=== PATIENT | male | born 1975 | race African-American/Black ===

== ENCOUNTER 2021-11-17 23:47 | Emergency (ER) | payer MEDICARE, OTHER ==
--- NOTE | 2021-11-18 00:10 | XR ---
EXAMINATION TYPE: XR chest 2V DATE OF EXAM: 11/18/2021 COMPARISON: NONE HISTORY: Short of breath. TECHNIQUE: 2 view FINDINGS: There is some coarse interstitial infiltrate in the mid and lower lung curiel. Heart size i s normal. Mediastinum is normal. There is left axillary pacemaker. There is no pleural effusion. IMPRESSION: There is some patchy interstitial pneumonia.
[2021-11-18] MEDS: IBUPROFEN 600 MG TAB PO STA (00:23)
[2021-11-18] MEDS: ACETAMINOPHEN TAB 325 MG TAB PO STA (00:23)
--- NOTE | 2021-11-18 01:13 | ED ---
Fever HPI - General Chief Complaint: Fever Stated Complaint: Body Aches, Loss of apetite Time Seen by Provider: 11/17/21 23:54 Source: patient, RN notes reviewed Mode of arrival: ambulatory - History of Present Illness Initial Comments: Patient is a 46-year-old male that presents to the emergency department complaining of body aches fatigue and fever. He denied taking Tylenol Motrin or to arrival. Patient notes he hasn't been tested for Covid in several months. Patient was otherwise well-appearing in no apparent distress. She denied chest pain shortness of breath headache nausea vomiting diarrhea constipation fatigue chills. - Related Data Previous Rx's Medication Instructions Recorded predniSONE 50 mg PO DAILY #5 tab 11/18/21 Allergies Allergy/AdvReac Type Severity Reaction Status Date / Time No Known Allergies Allergy Verified 11/17/21 23:54 Review of Systems ROS Statement: Those systems with pertinent positive or pertinent negative responses have been documented in the HPI. ROS Other: All systems not noted in ROS Statement are negative. Past Medical History Additional Past Medical History / Comment(s): pacemaker, born with heart problems History of Any Multi-Drug Resistant Organisms: None Reported Additional Past Surgical History / Comment(s): cardiac Past Psychological History: No Psychological Hx Reported Smoking Status: Never smoker Past Alcohol Use History: None Reported Past Drug Use History: None Reported General Exam General appearance: alert, in no apparent distress Head exam: Present: atraumatic, normocephalic, normal inspection Eye exam: Present: normal appearance, PERRL, EOMI. Absent: scleral icterus, conjunctival injection, periorbital swelling ENT exam: Present: normal exam, mucous membranes moist Neck exam: Present: normal inspection. Absent: tenderness, meningismus, lymphadenopathy Respiratory exam: Present: normal lung sounds bilaterally. Absent: respiratory distress, wheezes, rales, rhonchi, stridor Cardiovascular Exam: Present: regular rate, normal rhythm, normal heart sounds. Absent: systolic murmur, diastolic murmur, rubs, gallop, clicks GI/Abdominal exam: Present: soft, normal bowel sounds. Absent: distended, tenderness, guarding, rebound, rigid Extremities exam: Present: normal inspection, full ROM, normal capillary refill. Absent: tenderness, pedal edema, joint swelling, calf tenderness Neurological exam: Present: alert, oriented X3 Psychiatric exam: Present: normal affect, normal mood Skin exam: Present: warm, dry, intact, normal color. Absent: rash Course Vital Signs 11/17/21 23:50 Temperature 103.1 F H Pulse Rate 107 H Respiratory 18 Rate Blood Pressure 110/73 O2 Sat by Pulse 94 L Oximetry Medical Decision Making - Medical Decision Making 46-year-old male complaining of fever and bodyaches. Covid test, influenza test, chest x-ray ordered. Covid test positive. Chest x-ray bilateral patchy infiltrates. Patient will be given 10 mg of Decadron. 600 of Motrin and 650 of Tylenol was ordered for fever. - Lab Data Lab Results 11/18/21 Range/Units 00:25 Coronavirus (PCR) Detected A (Not Detectd) - Radiology Data Radiology results: report reviewed, image reviewed Chest x-ray: There is some patchy interstitial pneumonia. Disposition Clinical Impression: Pneumonia due to COVID-19 virus Disposition: HOME SELF-CARE Condition: Stable Instructions (If sedation given, give patient instructions): Fever in Adults (ED) Additional Instructions: Please return to the Emergency Department if symptoms worsen or any other concerns. Follow-up with primary care in 1-2 days. Take Tylenol Motrin alternating every 3 hours as needed for fever aches and pains. Is patient prescribed a controlled substance at d/c from ED?: No Referrals: None,Stated [Primary Care Provider] - 1-2 days Time of Disposition: 01:13
[2021-11-18] MEDS: DEXAMETHASONE SOD PHOSPHATE 10 MG/ML 1 ML VIAL IM STA (01:37)
[2021-11-18 01:40] VITALS: BP 116/75; PULSE 101; RESP 19; TEMP 99.2
== END 2021-11-18 01:43 | disposition home or self-care (01) ==
LOC: EC 23:47
DX: U07.1 COVID-19 (principal); J12.82 Pneumonia due to coronavirus disease 2019
CPT/HCPCS: 87502; 87635; 71046; 99283; 96372; J1100

== ENCOUNTER 2021-11-19 08:37 | Inpatient (IN) | payer MEDICARE, OTHER ==
[2021-11-19] MEDS ORDERED: IBUPROFEN IV 800 MG in SODIUM CHLORIDE 0.9% 250 ML IV ONE (08:54)
[2021-11-19] MEDS ORDERED: ONDANSETRON 4 MG/2 ML VIAL IVP STA (08:54)
[2021-11-19] MEDS ORDERED: SODIUM CHLORIDE 0.9% 1,000 ML IV ONE ×2 (08:54→11:18)
[2021-11-19] MEDS ORDERED: ACETAMINOPHEN TAB 500 MG TAB PO STA (08:54)
--- NOTE | 2021-11-19 09:10 | ED ---
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 Patient is reporting it elevated temperature, body aches, weakness, nausea, cough. States it hurts when he takes a deep breath. Patient denies taking any medication for his symptoms. States he was given prescriptions but he hasn't been able to get them filled due to pharmacy being closed. He was not vaccinated for COVID-19. Patient denies any recent rash, fever, chills, cough, shortness of breath, chest pain, abdominal pain, nausea, vomiting, diarrhea, constipation, back pain, numbness, tingling, dizziness, weakness, hematuria, dysuria, urinary urgency, urinary frequency, headache, visual changes, or any other complaints. - Related Data Previous Rx's Medication Instructions Recorded predniSONE 50 mg PO DAILY #5 tab 11/18/21 guaiFENesin-DM 600/30MG [Mucinex 2 each PO Q12HR PRN #20 tab 11/19/21 Dm] Allergies Allergy/AdvReac Type Severity Reaction Status Date / Time No Known Allergies Allergy Verified 11/19/21 08:43 Review of Systems ROS Statement: Those systems with pertinent positive or pertinent negative responses have been documented in the HPI. ROS Other: All systems not noted in ROS Statement are negative. Past Medical History Additional Past Medical History / Comment(s): pacemaker, born with heart problems History of Any Multi-Drug Resistant Organisms: None Reported Additional Past Surgical History / Comment(s): cardiac Past Psychological History: No Psychological Hx Reported Smoking Status: Never smoker Past Alcohol Use History: None Reported Past Drug Use History: None Reported General Exam Limitations: no limitations General appearance: alert, in no apparent distress, other (This is a well developed, well nourished adult male. ) Eye exam: Present: normal appearance, PERRL, EOMI. Absent: scleral icterus, conjunctival injection, periorbital swelling ENT exam: Present: normal exam, normal oropharynx, mucous membranes moist Respiratory exam: Present: normal lung sounds bilaterally. Absent: respiratory distress, wheezes, rales, rhonchi, stridor Cardiovascular Exam: Present: normal rhythm, tachycardia, normal heart sounds. Absent: systolic murmur, diastolic murmur, rubs, gallop, clicks GI/Abdominal exam: Present: soft, normal bowel sounds. Absent: distended, tenderness, guarding, rebound, rigid Neurological exam: Present: alert, oriented X3, CN II-XII intact Psychiatric exam: Present: normal affect, normal mood Skin exam: Present: warm, dry, intact, normal color. Absent: rash Course Vital Signs 11/19/21 11/19/21 11/19/21 08:39 11:15 11:19 Temperature 103.2 F H 99.7 F H Pulse Rate 109 H 89 Respiratory 18 16 Rate Blood Pressure 92/56 74/48 O2 Sat by Pulse 94 L 92 L Oximetry 11/19/21 11/19/21 11/19/21 11:47 12:29 12:34 Temperature Pulse Rate 73 73 81 Respiratory 18 17 20 Rate Blood Pressure 84/51 81/47 91/54 O2 Sat by Pulse 94 L 95 93 L Oximetry 11/19/21 11/19/21 13:01 13:57 Temperature Pulse Rate 66 81 Respiratory 18 18 Rate Blood Pressure 84/62 89/65 O2 Sat by Pulse 96 95 Oximetry - Reevaluation(s) Reevaluation #1: 11/19/21 11:25 Discharge vital signs revealed decreased blood pressure, blood pressure is 70 systolic. Additional 1 L of normal saline was ordered. Added labs and EKG. EKG Findings - EKG Comments: EKG Findings:: EKG obtained at 1145 shows normal sinus rhythm with a ventricular rate of 74, NE interval 154, QRS duration 106, QT 382, QTc 424. No evidence of ST elevation or depression. Medical Decision Making - Medical Decision Making 46-year-old male patient presenting for evaluation of worsening symptoms after being diagnosed with COVID-19 yesterday. Physical examination reveals clear equal lung sounds. Abdomen soft and nontender. He did have decreased oxygen saturation. Temperature is elevated to 103F. He was given IV fluids and medication for symptoms. He did meet criteria to receive monoclonal antibody infusion, he tolerated this well. Upon reevaluation is resting comfortable states he does feel better. His blood pressures are low ranging from 70s-80s systolic. He reports feeling tired, no other symptoms. Discussed case with Dr. Brunson, she recommends CTA of the chest. He'll be admitted to the hospital for further evaluation and monitoring. He verbalizes understanding and agrees with this plan. My attending is Dr. Mata. - Lab Data Result diagrams: 11/19/21 11:37 11/19/21 11:37 Lab Results 11/19/21 11/19/21 11/19/21 Range/Units 11:37 11:37 11:37 WBC 6.8 (3.8-10.6) k/uL RBC 3.66 L (4.30-5.90) m/uL Hgb 12.4 L (13.0-17.5) gm/dL Hct 36.3 L (39.0-53.0) % MCV 99.0 (80.0-100.0) fL MCH 33.8 (25.0-35.0) pg MCHC 34.1 (31.0-37.0) g/dL RDW 12.0 (11.5-15.5) % Plt Count 140 L (150-450) k/uL MPV 9.6 Neutrophils % 83 % Lymphocytes % 10 % Monocytes % 5 % Eosinophils % 1 % Basophils % 0 % Neutrophils # 5.7 (1.3-7.7) k/uL Lymphocytes # 0.7 L (1.0-4.8) k/uL Monocytes # 0.4 (0-1.0) k/uL Eosinophils # 0.0 (0-0.7) k/uL Basophils # 0.0 (0-0.2) k/uL Sodium 131 L (137-145) mmol/L Potassium 4.3 (3.5-5.1) mmol/L Chloride 101 (98-107) mmol/L Carbon Dioxide 22 (22-30) mmol/L Anion Gap 8 mmol/L BUN 28 H (9-20) mg/dL Creatinine 1.47 H (0.66-1.25) mg/dL Est GFR (CKD-EPI)AfAm 65 (>60 ml/min/1.73 sqM) Est GFR (CKD-EPI)NonAf 56 (>60 ml/min/1.73 sqM) Glucose 142 H (74-99) mg/dL Plasma Lactic Acid Salvador 0.9 (0.7-2.0) mmol/L Calcium 7.5 L (8.4-10.2) mg/dL Total Bilirubin 0.7 (0.2-1.3) mg/dL AST 32 (17-59) U/L ALT 18 (4-49) U/L Alkaline Phosphatase 34 L (38-126) U/L Troponin I (0.000-0.034) ng/mL NT-Pro-B Natriuret Pep pg/mL Total Protein 6.5 (6.3-8.2) g/dL Albumin 3.0 L (3.5-5.0) g/dL 11/19/21 11/19/21 Range/Units 11:37 11:37 WBC (3.8-10.6) k/uL RBC (4.30-5.90) m/uL Hgb (13.0-17.5) gm/dL Hct (39.0-53.0) % MCV (80.0-100.0) fL MCH (25.0-35.0) pg MCHC (31.0-37.0) g/dL RDW (11.5-15.5) % Plt Count (150-450) k/uL MPV Neutrophils % % Lymphocytes % % Monocytes % % Eosinophils % % Basophils % % Neutrophils # (1.3-7.7) k/uL Lymphocytes # (1.0-4.8) k/uL Monocytes # (0-1.0) k/uL Eosinophils # (0-0.7) k/uL Basophils # (0-0.2) k/uL Sodium (137-145) mmol/L Potassium (3.5-5.1) mmol/L Chloride (98-107) mmol/L Carbon Dioxide (22-30) mmol/L Anion Gap mmol/L BUN (9-20) mg/dL Creatinine (0.66-1.25) mg/dL Est GFR (CKD-EPI)AfAm (>60 ml/min/1.73 sqM) Est GFR (CKD-EPI)NonAf (>60 ml/min/1.73 sqM) Glucose (74-99) mg/dL Plasma Lactic Acid Salvador (0.7-2.0) mmol/L Calcium (8.4-10.2) mg/dL Total Bilirubin (0.2-1.3) mg/dL AST (17-59) U/L ALT (4-49) U/L Alkaline Phosphatase (38-126) U/L Troponin I <0.012 (0.000-0.034) ng/mL NT-Pro-B Natriuret Pep 47 pg/mL Total Protein (6.3-8.2) g/dL Albumin (3.5-5.0) g/dL - Radiology Data Radiology results: report reviewed, image reviewed Two-view x-ray of the chest is obtained. Report was reviewed in its entirety. Impression by Dr. Beckman shows patchy bibasilar opacities with mild interstitial bilateral prominence suggestive of multifocal infection. Disposition Clinical Impression: COVID-19, Hypotension Disposition: ADMITTED IP TO THIS [facility] Condition: Serious Decision to Admit Reason: Admit from EC Decision Date: 11/19/21 Decision Time: 14:25
[2021-11-19] MEDS ORDERED: SODIUM CHLORIDE 0.9% 50 ML IVPB ONE (09:30)
[2021-11-19] MEDS ORDERED: BAMLANIVIMAB (EUA) 700 MG, ETESEVIMAB (EUA) 1,400 MG in SODIUM CHLORIDE 0.9% 100 ML IVPB ONE (09:30)
--- NOTE | 2021-11-19 10:34 | XR ---
EXAMINATION TYPE: XR chest 2V DATE OF EXAM: 11/19/2021 COMPARISON: NONE HISTORY: Cough and chest pain covid positive TECHNIQUE: Frontal and lateral views of the chest are obtained. IMPRESSION: Patchy bibasilar right greater than left opacities with mild interstitial bilateral promi nence suggestive of multifocal infection and/or subsegmental atelectasis with associated mild pulmon monica edema. No pneumothorax or large effusion. Normal cardiomediastinal silhouette with dual-lead cardiac pacemaker. No acute osseous abnormalities seen.
[2021-11-19 12:03] LABS: Calcium 7.5 mg/dL (8.4-10.2); Potassium 4.3 mmol/L (3.5-5.1); Total Bilirubin 0.7 mg/dL (0.2-1.3); Total Protein 6.5 g/dL (6.3-8.2)
[2021-11-19 12:10] LABS: Basophils % (A) 0 %; Eosinophils % (A) 1 %; HCT 36.3 % (39.0-53.0); HGB 12.4 gm/dL (13.0-17.5); Lymphocytes # (A) 0.7 k/uL (1.0-4.8); Lymphocytes % (A) 10 %; MCH 33.8 pg (25.0-35.0); MCHC 34.1 g/dL (31.0-37.0); Mean Platelet Volume 9.6; Monocytes # (A) 0.4 k/uL (0-1.0); Monocytes % (A) 5 %; Neutrophils # (A) 5.7 k/uL (1.3-7.7); Neutrophils % (A) 83 %; Platelet Count 140 k/uL (150-450); RBC 3.66 m/uL (4.30-5.90); WBC 6.8 k/uL (3.8-10.6)
[2021-11-19] MEDS ORDERED: ONDANSETRON 4 MG/2 ML VIAL IVP PRN (14:23)
[2021-11-19] MEDS ORDERED: NALOXONE 0.4 MG/ML 1 ML VIAL IV PRN ×2 (14:23→14:47)
--- NOTE | 2021-11-19 15:00 | P.HPIM ---
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 Patient is reporting it elevated temperature, body aches, weakness, nausea, vomiting and diarrhea. Also has shortness of breath and pleuritic chest pain. No cough. He was not vaccinated for COVID-19. He is feeling generally weak. He has not eaten in 6 days because nothing stays down. Patient states that he is supposed to be on some heart medications but he has not been taking them lately. Last time he saw a diamond grinder was a year ago. He states that he is status post a pacemaker and defibrillator. Examination in the emergency department showed no hypoxia. He did have a fever of 103.2 and blood pressure was borderline in the 90s systolic. Laboratory evaluation shows lymphopenia, sodium 131, BUN 28, creatinine 1.4, calcium 7.5, albumin 3. Chest x-ray showed bilateral infiltrates consistent with pneumonia. Review of Systems Complete review of system performed, pertinent positives per HPI, otherwise negative Past Medical History Additional Past Medical History / Comment(s): pacemaker, born with heart problems History of Any Multi-Drug Resistant Organisms: None Reported Additional Past Surgical History / Comment(s): cardiac Past Psychological History: No Psychological Hx Reported Smoking Status: Never smoker Past Alcohol Use History: None Reported Past Drug Use History: None Reported Medications and Allergies Home Medications Medication Instructions Recorded Confirmed Type predniSONE 50 mg PO DAILY #5 tab 11/18/21 Rx guaiFENesin-DM 600/30MG [Mucinex 2 each PO Q12HR PRN #20 tab 11/19/21 Rx Dm] Allergies Allergy/AdvReac Type Severity Reaction Status Date / Time No Known Allergies Allergy Verified 11/19/21 08:43 Physical Exam Vitals: Vital Signs Temp Pulse Resp BP Pulse Ox 11/19/21 13:57 81 18 89/65 95 11/19/21 13:01 66 18 84/62 96 11/19/21 12:34 81 20 91/54 93 L 11/19/21 12:29 73 17 81/47 95 11/19/21 11:47 73 18 84/51 94 L 11/19/21 11:19 74/48 12/26/21 11:15 99.7 F H 89 16 92 L 11/19/21 08:39 103.2 F H 109 H 18 92/56 94 L Intake and Output 11/18/21 11/19/21 11/19/21 22:59 06:59 14:59 Other: Weight 90.718 kg Constitutional: No acute distress, conversant, pleasant Eyes:Anicteric sclerae, moist conjunctiva, no lid-lag, PERRLA, ENMT: Oropharynx clear, no erythema, exudates Neck: Supple, FROM, no masses, or JVD, No carotid bruits, No thyromegaly Lungs: Clear to auscultation, Clear to percussion, Normal respiratory effort, no accessory muscle use Cardiovascular: Heart regular in rate and rhythm, No murmurs, gallops, or rubs, No peripheral edema Abdominal: Soft, Nontender, no guarding, rebound or rigidity, Normoactive bowel sounds, No hepatomegaly, No splenomegaly, No palpable mass Skin: Normal temperature, tone, texture, turgor, no induration, No subcutaneous nodules, No rash, lesions, No ulcers Extremities: No digital cyanosis, No clubbing, Pedal pulses intact and symmetrical, Radial pulses intact and symmetrical, No calf tenderness Psychiatric: Alert and oriented to person, place and time, appropriate affect, intact judgement Neuro: Muscles Strength 5/5 in all 4 extremities, Sensation to light touch grossly present throughout, Cranial nerves II-XII grossly intact, no focal sensory deficits Results CBC & Chem 7: 11/19/21 11:37 11/19/21 11:37 Labs: Abnormal Lab Results - Last 24 Hours (Table) 11/19/21 11/19/21 Range/Units 11:37 11:37 RBC 3.66 L (4.30-5.90) m/uL Hgb 12.4 L (13.0-17.5) gm/dL Hct 36.3 L (39.0-53.0) % Plt Count 140 L (150-450) k/uL Lymphocytes # 0.7 L (1.0-4.8) k/uL Sodium 131 L (137-145) mmol/L BUN 28 H (9-20) mg/dL Creatinine 1.47 H (0.66-1.25) mg/dL Glucose 142 H (74-99) mg/dL Calcium 7.5 L (8.4-10.2) mg/dL Alkaline Phosphatase 34 L (38-126) U/L Albumin 3.0 L (3.5-5.0) g/dL Assessment and Plan Plan: COVID-19 pneumonia Received bamlanivimab in the ER He is not hypoxic, will not treat with steroids for now Check procalcitonin to decide if he might benefit from anbx. Monitor O2 sats CT angio ordered in the ER will follow. [place] Likely sec to severe dehydration IV fluids Will recheck renal fx in am Hyponatremia Likely from dehydration as above Will follow in am Congenital heart disease Will get echo, unclear what type per the patient's description DVT prophylaxis Lovenox Admit to inpatient expected length of stay more than 2 midnights.
[2021-11-19] MEDS: IBUPROFEN 400 MG TAB PO PRN (15:20)
--- NOTE | 2021-11-19 15:33 | CT ---
EXAMINATION TYPE: CT chest angio for PE DATE OF EXAM: 11/19/2021 COMPARISON: Chest radiograph same day HISTORY: covid, sob CT DLP: 387.6 mGycm Automated exposure control for dose reduction was used. CONTRAST: CT Chest for pulmonary embolism performed with with IV Contrast, patient injected with 80 mL of Isovu e 370. FINDINGS: LUNGS: Central airways are normal course and caliber. Diffuse patchy peripherally distributed multifo guillermo areas of groundglass opacity. No pleural effusion or pneumothorax. MEDIASTINUM: Cardiac size appears borderline enlarged. Dual-lead pacemaker is present. Thoracic aorta is of normal caliber. Suboptimal opacification of the pulmonary arteries; however, there are no cent ral filling defects to suggest pulmonary embolism. A few mildly prominent mediastinal and hilar lymph nodes which are likely reactive. No axillary lymph adenopathy. OTHER: No additional significant abnormality is seen. IMPRESSION: 1. Scattered multifocal areas of groundglass opacity with a peripheral distribution within the bilate ral lungs. Findings are nonspecific but can see with atypical pneumonitis from COVID. 2. Suboptimal opacification of the pulmonary arteries; however, there is no evidence of pulmonary emb olism.
[2021-11-19] MEDS: SODIUM CHLORIDE 0.9% 1,000 ML IV SCH (16:36)
[2021-11-19] MEDS: ENOXAPARIN 40 MG/0.4 ML SYRINGE SQ SCH (17:15)
[2021-11-20] MEDS: ACETAMINOPHEN TAB 325 MG TAB PO PRN ×4 (00:32→17:51)
[2021-11-20] MEDS: SODIUM CHLORIDE 0.9% 1,000 ML IV SCH ×2 (06:26→17:56)
[2021-11-20] MEDS: IBUPROFEN 400 MG TAB PO PRN ×2 (09:47→19:55)
[2021-11-20] MEDS: ENOXAPARIN 40 MG/0.4 ML SYRINGE SQ SCH (09:48)
--- NOTE | 2021-11-20 11:00 | ECHOF ---
Referral Reason:''hole in the aorta'' MEASUREMENTS -------- HEIGHT: 175.3 cm WEIGHT: 90.7 kg BP: RVIDd: 3.1 cm (< 3.3) IVSd: 1.4 cm (0.6 - 1.1) LVIDd: 5.5 cm (3.9 - 5.3) LVPWd: 1.3 cm (0.6 - 1.1) IVSs: 1.6 cm LVIDs: 2.9 cm LVPWs: 1.5 cm LA Diam: 4.0 cm (2.7 - 3.8) FINDINGS -------- Sinus rhythm. Limited study due to Covid 19 exposure. This was a technically adequate study. There is moderate concentric left ventricular hypertrophy. Overall left ventricular systolic functi on is low-normal with, an EF between 50 - 55 %. CONCLUSIONS -------- 1. Limited study due to Covid 19 exposure. 2. There is moderate concentric left ventricular hypertrophy. 3. Overall left ventricular systolic function is low-normal with, an EF between 50 - 55 %. [employer] SALES: Mckayla Patel RDCS
--- NOTE | 2021-11-20 13:29 | PN ---
PROGRESS NOTE BRIEF NOTE: I did not examine this patient. He has been admitted with what seems to be a COVID infection. He had a CT angiogram performed because of an abnormal D-dimer, and there is no evidence of any pulmonary embolism, but there are multiple areas of ground-glass appearance noted. He has what seems to be a COVID pneumonitis. He carries a history of some congenital heart disease, details unavailable. Patient does not communicate very well. I spoke to him, but I did not examine him. On questioning, he says his cardiac care was at [facility] and [facility]. He has no active problems. He has no chest pain, shortness of breath or palpitations. He is resting comfortably. I did not do a detailed exam, but I reviewed the echo which revealed preserved systolic function. The aortic valve that was seen appears to be trileaflet. This was a limited study in view of active COVID infection. I would recommend that patient follow up with his distribution clerk after discharge at [facility]. No further intervention is necessary here. If his blood pressure is somewhat on the lower side, he can be safely hydrated. LV systolic function is well preserved. I discussed my thoughts in detail with Dr. Brunson. His BNP is normal and his troponin is unremarkable. His procalcitonin is elevated. He does have COVID pneumonia. We are probably dealing with some dehydration, so careful hydration is advised. I will see him as needed. GILBERTO / LYNETTE: [id number] /
--- NOTE | 2021-11-20 13:58 | P.PN ---
Subjective Progress Note Date: 11/20/21 (delayed charting seen at 1030) Principal diagnosis: shortness of breath Patient is a 46-year-old -[place] male for history of congenital heart condition, pacemaker, who presented to the hospital with complaints of worsening body aches, weakness, nausea, vomiting, and diarrhea. He had tested positive for cocaine on 11/18. In the ER he underwent an extensive evaluation. He did have a fever of 103.2. He had borderline blood pressures in the 70s to 90s desp ite fluid resuscitation. He was found have a BUN of 28, creatinine 1.5, and sodium of 131. He was admitted and started on IV fluids. He underwent an echocardiogram 50-55%, CT of the chest was without pulmonary embolism. He was evaluated by cardiology who felt he could receive adequate fluid resuscitation and follow up outpatient with his primary journeyman press operator of [facility]. Patient seen and examined at bedside. He reports he still feels awful". He denies any chest discomfort but states he is feeling short of breath, tired, fatigued and still feels nauseated. He does feel slightly better than yesterday. Per nursing he refused his labs today. General: ill appearing, no distress, appears at stated age Derm: warm, dry Head: atraumatic, normocephalic, symmetric Eyes: EOMI, no lid lag, anicteric sclera Mouth: no lip lesion, mucus membranes dry Cardiovascular: S1S2 reg, no murmur, positive posterior tibial pulse bilateral, Lungs: Course bs bilateral, no rhonchi, no rales , no accessory muscle use Abdominal: soft, nontender to palpation, no guarding, no appreciable organomegaly Ext: no gross muscle atrophy, no edema, no contractures Neuro: CN II-XI grossly intact, no focal neuro deficits Psych: Alert, oriented, appropriate affect COVID-19 pneumonitis Dehydration [place] Hyponatremia - IV fluids - zinc, vit C, Vit D - pulm hygiene - prn borncho dilators Anemia Thromboctyopenia - ideally CBC if patient will consent Congential heart defect - interrogate PPM if able - Echo with preserved EF - Follow-up with outpatient primary journeyman press operator. Objective - Vital Signs Vital signs: Vital Signs Temp 102.9 F H 11/20/21 10:03 Pulse 96 11/20/21 10:03 Resp 17 11/20/21 10:03 BP 89/57 11/20/21 10:03 Pulse Ox 90 L 11/20/21 10:03 Intake & Output 11/19/21 11/20/21 11/20/21 18:59 06:59 18:59 Intake Total 0 900 Balance 0 900 Weight 90.718 kg Intake: Intake, IV Titration 900 Amount Sodium Chloride 0.9% 1, 900 000 ml @ 75 mls/hr IV . [id number] [facility] Rx#:[id number] Oral 0 Other: # Voids 0 - Labs CBC & Chem 7: 11/19/21 11:37 11/19/21 11:37 Labs: Abnormal Lab Results - Last 24 Hours (Table) 11/19/21 Range/Units 11:37 Procalcitonin 0.40 H (0.02-0.09) ng/mL
[2021-11-20] MEDS: CHOLECALCIFEROL 25 MCG (1000 IU) TABLET PO SCH (14:26)
[2021-11-20] MEDS: ASCORBIC ACID 500 MG TAB PO SCH (14:26)
[2021-11-20 15:01] LABS: HCT 39.6 % (39.0-53.0); HGB 12.9 gm/dL (13.0-17.5); MCH 33.7 pg (25.0-35.0); MCHC 32.5 g/dL (31.0-37.0); MCV 103.4 fL (80.0-100.0); Macrocytosis Slight; Mean Platelet Volume 8.9; Platelet Count 151 k/uL (150-450); RBC 3.82 m/uL (4.30-5.90); RDW 12.4 % (11.5-15.5); WBC 7.3 k/uL (3.8-10.6)
[2021-11-20 15:17] LABS: African American GFR (CKD) >90 (>60 ml/min/1.73 sqM); Anion Gap 7 mmol/L; Blood Urea Nitrogen 14 mg/dL (9-20); Calcium 7.7 mg/dL (8.4-10.2); Carbon Dioxide 22 mmol/L (22-30); Chloride 108 mmol/L (98-107); Glucose 116 mg/dL (74-99); Non-African American GFR(CKD) >90 (>60 ml/min/1.73 sqM); Potassium 4.7 mmol/L (3.5-5.1); Sodium 137 mmol/L (137-145)
[2021-11-21] MEDS: SODIUM CHLORIDE 0.9% 1,000 ML IV SCH (05:38)
[2021-11-21] MEDS: ACETAMINOPHEN TAB 325 MG TAB PO PRN ×2 (06:01→19:13)
[2021-11-21] MEDS: ZINC SULFATE 220 MG CAP PO SCH (08:28)
[2021-11-21] MEDS: ENOXAPARIN 40 MG/0.4 ML SYRINGE SQ SCH (08:28)
[2021-11-21] MEDS: ASCORBIC ACID 500 MG TAB PO SCH (08:28)
[2021-11-21] MEDS: CHOLECALCIFEROL 25 MCG (1000 IU) TABLET PO SCH (08:28)
[2021-11-21 10:44] LABS: HCT 36.4 % (39.6-50.0); HGB 11.7 g/dL (13.0-17.0); MCH 31.9 pg (27.0-32.0); MCHC 32.1 g/dL (32.0-37.0); MCV 99.2 fL (80.0-97.0); Mean Platelet Volume 11.4 fL (9.5-12.2); Platelet Count 170 X 10*3/uL (140-440); RBC 3.67 X 10*6/uL (4.40-5.60); RDW 12.8 % (11.5-14.5); WBC 7.77 X 10*3/uL (4.50-10.00)
[2021-11-21] MEDS: DEXAMETHASONE SOD PHOSPHATE 10 MG/ML 1 ML VIAL IVP SCH (11:21)
[2021-11-21] MEDS: ALBUTEROL HFA INHALER INHALATION SCH ×3 (11:37→20:14)
[2021-11-21 12:00] LABS: Basophils # (A) 0.02 X 10*3/uL (0.00-0.10); Basophils % (A) 0.3 %; Eosinophils # (A) 0.02 X 10*3/uL (0.04-0.35); Eosinophils % (A) 0.3 %; Lymphocytes # (A) 0.61 X 10*3/uL (0.90-5.00); Lymphocytes % (A) 7.9 %; Monocytes # (A) 0.22 X 10*3/uL (0.20-1.00); Monocytes % (A) 2.8 %; Neutrophils # (A) 6.84 X 10*3/uL (1.80-7.70); Neutrophils % (A) 87.9 %
[2021-11-21 12:01] LABS: Toxic Vacuolation 2+
[2021-11-21 13:03] LABS: African American GFR (CKD) 117.5 (60.0-200.0); Anion Gap 14.3 mmol/L (10.00-18.00); BUN/Creat Ratio 13.22 Ratio (12.00-20.00); Blood Urea Nitrogen 11.9 mg/dL (9.0-27.0); Calcium 7.7 mg/dL (8.7-10.3); Carbon Dioxide 16.7 mmol/L (20.0-27.5); Non-African American GFR(CKD) 101.4 (60.0-200.0); Phosphorus 1.3 mg/dL (2.4-5.1); Potassium 4.3 mmol/L (3.5-5.5); Total Bilirubin 0.8 mg/dL (0.30-1.20)
--- NOTE | 2021-11-21 13:46 | P.PN ---
Subjective Progress Note Date: 11/21/21 (delayed charting seen at 1030) Principal diagnosis: shortness of breath Patient is a 46-year-old -[place] male for history of congenital heart condition, pacemaker, who presented to the hospital with complaints of worsening body aches, weakness, nausea, vomiting, and diarrhea. He had tested positive for cocaine on 11/18. In the ER he underwent an extensive evaluation. He did have a fever of 103.2. He had borderline blood pressures in the 70s to 90s desp ite fluid resuscitation. He was found have a BUN of 28, creatinine 1.5, and sodium of 131. He was admitted and started on IV fluids. He underwent an echocardiogram 50-55%, CT of the chest was without pulmonary embolism. He was evaluated by cardiology who felt he could receive adequate fluid resuscitation and follow up outpatient with his primary physical therapy professor of [facility]. Patient seen and examined at bedside. He reports that he is feeling slightly more short of breath today. His appetite is better but he is still just wanting fluids and not liquids. He denies any nausea but overall feels better and was able to take a shower today. General: ill appearing, no distress, appears at stated age Derm: warm, dry Head: atraumatic, normocephalic, symmetric Eyes: EOMI, no lid lag, anicteric sclera Mouth: no lip lesion, mucus membranes dry Cardiovascular: S1S2 reg, no murmur, positive posterior tibial pulse bilateral, Lungs: Course bs bilateral, no rhonchi, no rales , no accessory muscle use Abdominal: soft, nontender to palpation, no guarding, no appreciable organom egaly Ext: no gross muscle atrophy, no edema, no contractures Neuro: CN II-XI grossly intact, no focal neuro deficits Psych: Alert, oriented, appropriate affect COVID-19 pneumonitis in an unvaccinated individual Acute hypoxic respiratory failure -Start dexamethasone -Albuterol - IV fluids completed - zinc, vit C, Vit D - pulm hygiene - prn borncho dilators Anemia - ideally CBC if patient will consent Congential heart defect - interrogate PPM if able - Echo with preserved EF - Follow-up with outpatient primary physical therapy professor. Dehydration, resolved [place], resolved Hyponatremia , Thromboctyopenia, resolved Objective - Vital Signs Vital signs: Vital Signs Temp 98.9 F 11/21/21 10:39 Pulse 95 11/21/21 10:39 Resp 18 11/21/21 10:39 BP 103/65 11/21/21 10:39 Pulse Ox 87 L 11/21/21 10:39 Intake & Output 11/20/21 11/21/21 11/21/21 18:59 06:59 18:59 Output Total 300 700 Balance -300 -700 Output: Urine 300 700 Other: Voiding Method Urinal # Voids 3 # Bowel Movements 0 - Labs CBC & Chem 7: 11/21/21 08:07 11/21/21 08:07 Labs: Abnormal Lab Results - Last 24 Hours (Table) 11/20/21 11/20/21 11/21/21 Range/Units 14:53 14:53 08:07 RBC 3.82 L 3.67 L (4.30-5.90) m/uL Hgb 12.9 L 11.7 L (13.0-17.5) gm/dL Hct 36.4 L (39.6-50.0) % MCV 103.4 H 99.2 H (80.0-100.0) fL Immature Gran # 0.06 H (0.00-0.04) X 10*3/uL Lymphocytes # 0.61 L (0.90-5.00) X 10*3/uL Eosinophils # 0.02 L (0.04-0.35) X 10*3/uL Chloride 108 H (98-107) mmol/L Carbon Dioxide (20.0-27.5) mmol/L Glucose 116 H (74-99) mg/dL Calcium 7.7 L (8.4-10.2) mg/dL Phosphorus (2.4-5.1) mg/dL Alkaline Phosphatase (41-126) U/L Total Protein (6.2-8.2) g/dL Albumin (3.8-4.9) g/dL Albumin/Globulin Ratio (1.60-3.17) g/dL 11/21/21 Range/Units 08:07 RBC (4.30-5.90) m/uL Hgb (13.0-17.5) gm/dL Hct (39.6-50.0) % MCV (80.0-100.0) fL Immature Gran # (0.00-0.04) X 10*3/uL Lymphocytes # (0.90-5.00) X 10*3/uL Eosinophils # (0.04-0.35) X 10*3/uL Chloride (98-107) mmol/L Carbon Dioxide 16.7 L (20.0-27.5) mmol/L Glucose 143 H (74-99) mg/dL Calcium 7.7 L (8.4-10.2) mg/dL Phosphorus 1.3 L (2.4-5.1) mg/dL Alkaline Phosphatase 40 L (41-126) U/L Total Protein 6.0 L (6.2-8.2) g/dL Albumin 3.0 L (3.8-4.9) g/dL Albumin/Globulin Ratio 1.00 L (1.60-3.17) g/dL Microbiology - Last 24 Hours (Table) 11/20/21 20:14 Gram Stain - Preliminary Sputum Sputum Culture - Preliminary
[2021-11-22] MEDS: CHOLECALCIFEROL 25 MCG (1000 IU) TABLET PO SCH (07:57)
[2021-11-22] MEDS: ASCORBIC ACID 500 MG TAB PO SCH (07:57)
[2021-11-22] MEDS: ENOXAPARIN 40 MG/0.4 ML SYRINGE SQ SCH (07:58)
[2021-11-22] MEDS: DEXAMETHASONE SOD PHOSPHATE 10 MG/ML 1 ML VIAL IVP SCH (07:58)
[2021-11-22] MEDS: ZINC SULFATE 220 MG CAP PO SCH (07:58)
[2021-11-22] MEDS: ALBUTEROL HFA INHALER INHALATION SCH ×4 (08:56→21:29)
[2021-11-22] MEDS: SODIUM PHOSPHATE 10 MMOL in SODIUM CHLORIDE 0.9% 250 ML IVPB SCH ×3 (11:40→16:30)
--- NOTE | 2021-11-22 14:46 | P.CNPUL ---
History of Present Illness Consult date: 11/22/21 Requesting physician: Vivi Brunson Reason for consult: dyspnea, abnormal CXR/CT Chief complaint: Shortness of breath History of present illness: This a pleasant 46-year-old male patient who presented to the emergency room initially on 11/18/2021 with complaints of fever, body aches, weakness nausea cough congestion. Tested positive for CoVID19. He is not vaccinated. 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 No other medical history. He was treated with Decadron and Tylenol and subsequently discharged. He represented to the emergency room on 11/19/2021. He did receive monoclonal antibodies in the emergency room. A CT angiogram revealed bilateral patchy opacities. He is also having issues with hypotension and was admitted for the same. He is seen today in consultation on the regular medical floor. He is currently resting fairly comfortably in bed. Awake and alert. He is maintaining O2 saturation the high 80s low 90s on 4 L high flow nasal cannula. He's been afebrile the past 24 hours. Did present with a T-max of 103.2. Sputum culture pending. White count 7.7. Hemoglobin 11.7. Lymphocytes 0.6. Sodium 141 potassium 4.3. Creatinine 0.9. Pro- calcitonin 0.40. He's been initiated on Decadron, Lovenox, vitamin supplements. CT angiogram ruled out pulmonary embolism however there was scattered multifocal areas of groundglass opacities consistent with COVID-19 pneumonia. Review of Systems REVIEW OF SYSTEMS: CONSTITUTIONAL: Positive for fevers, generalized weakness, fatigue. Denies any recent significant weight loss or weight gain. EYES: Denies change in vision. EARS, NOSE, MOUTH, THROAT: Denies headaches, denies sore throat. CARDIOVASCULAR: Denies chest pain, palpitations or syncopal episodes. RESPIRATORY: Consistent of 4 shortness of breath, cough, congestion no hemo ptysis. GASTROINTESTINAL: Denies change in appetite, denies abdominal pain GENITOURINARY: Denies hematuria, denies infections. MUSKULOSKELETAL: Denies pain, denies swelling. INTEGUMENTARY: Denies rash, denies eczema. NEUROLOGICAL: Denies recent memory loss, no recent seizure activity. PSYCHIATRIC: Denies anxiety, denies depression. HEMATOLOGIC/LYMPHATIC: Denies anemia, denies enlarged lymph nodes. Past Medical History Additional Past Medical History / Comment(s): pacemaker, born with heart problems History of Any Multi-Drug Resistant Organisms: None Reported Additional Past Surgical History / Comment(s): cardiac Past Psychological History: No Psychological Hx Reported Smoking Status: Never smoker Past Alcohol Use History: None Reported Past Drug Use History: None Reported Medications and Allergies Home Medications Medication Instructions Recorded Confirmed Type Baclofen 10 mg PO DIRECTED 11/19/21 11/19/21 History Gabapentin 800 mg PO TID PRN 11/19/21 11/19/21 History HYDROcodone/APAP 10-325MG [[place] 1 tab PO Q8H PRN 11/19/21 11/19/21 History 10-325] guaiFENesin-DM 600/30MG [Mucinex 2 each PO Q12HR PRN #20 tab 11/19/21 Rx Dm] predniSONE 50 mg PO DIRECTED 11/19/21 11/19/21 History Allergies Allergy/AdvReac Type Severity Reaction Status Date / Time No Known Allergies Allergy Verified 11/19/21 16:17 Physical Exam Vitals: Vital Signs Temp Pulse Resp BP Pulse Ox 11/22/21 10:00 98.6 F 95 17 115/74 90 L 11/22/21 05:24 98.0 F 79 125/74 89 L 11/22/21 02:17 98.6 F 73 119/72 94 L 11/21/21 20:00 98.4 F 92 16 122/69 91 L 11/21/21 18:04 100.5 F H 92 16 117/65 92 L 11/21/21 15:20 99.1 F 90 16 104/65 89 L Intake and Output 11/21/21 11/22/21 11/22/21 22:59 06:59 14:59 Other: # Voids 2 2 # Bowel Movements 1 0 GENERAL EXAM: Alert, very pleasant 46-year-old gentleman, on 4 L high flow nasal cannula, fairly comfortable in no apparent distress. HEAD: Normocephalic. EYES: Normal reaction of pupils, equal size. NOSE: Clear with pink turbinates. THROAT: No erythema or exudates. NECK: No masses, no JVD. CHEST: No chest wall deformity. LUNGS: Equal air entry with crackles in the bilateral bases CVS: S1 and S2 normal with no audible murmur, regular rhythm. ABDOMEN: No hepatosplenomegaly, normal bowel sounds, no guarding or rigidity. SPINE: No scoliosis or deformity SKIN: No rashes CENTRAL NERVOUS SYSTEM: No focal deficits, tone is normal in all 4 extremities. EXTREMITIES: There is no peripheral edema. No clubbing, no cyanosis. Pe ripheral pulses are intact. Results - Laboratory Findings CBC and BMP: 11/21/21 08:07 11/21/21 08:07 Abnormal lab findings: Abnormal Labs 11/19/21 11/19/21 11/19/21 11:37 11:37 11:37 RBC 3.66 L Hgb 12.4 L Hct 36.3 L MCV Plt Count 140 L Immature Gran # Lymphocytes # 0.7 L Eosinophils # Sodium 131 L Chloride Carbon Dioxide BUN 28 H Creatinine 1.47 H Glucose 142 H Calcium 7.5 L Phosphorus Alkaline Phosphatase 34 L Total Protein Albumin 3.0 L Albumin/Globulin Ratio Procalcitonin 0.40 H 11/20/21 11/20/21 11/21/21 14:53 14:53 08:07 RBC 3.82 L 3.67 L Hgb 12.9 L 11.7 L Hct 36.4 L MCV 103.4 H 99.2 H Plt Count Immature Gran # 0.06 H Lymphocytes # 0.61 L Eosinophils # 0.02 L Sodium Chloride 108 H Carbon Dioxide BUN Creatinine Glucose 116 H Calcium 7.7 L Phosphorus Alkaline Phosphatase Total Protein Albumin Albumin/Globulin Ratio Procalcitonin 11/21/21 08:07 RBC Hgb Hct MCV Plt Count Immature Gran # Lymphocytes # Eosinophils # Sodium Chloride Carbon Dioxide 16.7 L BUN Creatinine Glucose 143 H Calcium 7.7 L Phosphorus 1.3 L Alkaline Phosphatase 40 L Total Protein 6.0 L Albumin 3.0 L Albumin/Globulin Ratio 1.00 L Procalcitonin - Diagnostic Findings Chest x-ray: image reviewed Assessment and Plan Assessment: 1 Acute COVID-19 pneumonia. Symptoms started less than 1 week ago. On 4 L nasal cannula. Not vaccinated. We'll initiate Remdesivir. Continue Decadron, Lovenox, vitamin supplements. CT angiogram ruled out pulmonary embolism. There is evidence of bilateral patchy opacities consistent with COVID-19 pneumonia. 2 History of cardiac congenital defects status post permanent pacemaker implantation Plan: The patient was seen and evaluated by Dr. Valery Chest x-ray, CAT scans and labs reviewed Meats criteria for Remdesivir we'll start today Continue Decadron, Lovenox, vitamin supplements Titrate the FiO2 as tolerated Follow-up chest x-ray and labs in the a.m. We will continue to follow and make further recommendations based on his clinical status I, the cosigning physician, performed a history & physical examination of the patient. Lungs sounds crackles in the bilateral bases. Maintaining O2 saturations in the 90s on 4 L/m per nasal cannula. I discussed the assessment and plan of care with my nurse practitioner, Luciana French. I attest to the above consultation as dictated by her. Time with Patient: Greater than 30
--- NOTE | 2021-11-22 15:51 | CDI ---
Documentation Clarification Form Date: 11/22/2021 03:41:29 PM From: Yelena DarlingCarrionMALACHI werner, CCDS Admit Date: 11/19/2021 02:01:00 PM Patient Name: Karo Sandoval Visit Number: [id number] Discharge Date: ATTENTION: The Clinical Documentation Specialists (CDI) and [facility] Coding Staff appreciate your assistance in clarifying documentation. Please respond to the clarification below the line at the bottom and electronically sign. The CDI & [facility] [employer] Coding staff will review the response and follow-up if needed. Please note: Queries are made part of the Legal Health Record. If you have any questions, please contact the author of this message via ITS. Dr. Vivi Brunson: Anemia is documented in the Attending Physician Progress Notes on 11/20 & 11/21 without further specificity. Additional specificity regarding the Type & Acuity of Anemia is requested. History/Risk Factors per the 11/19 H/P: Congenital Heart Condition, Pacemaker. Clinical indicators: Presented to the ED on 11/19 with elevated temperature, body aches, weakness, nausea & cough, pain with deep breathing. Tested positive for COVID 19 yesterday. Admit with COVID 19 and Hypotension. 11/19 VS: T 103.2, P 109, R 18 (sob, cough), BP 92/56, PO 94 RA, BMI: 29.5 11/19 LAB: RBC 3.66, Pl Ct 140, Lymph 0.7, Na 131, BUN 28, Cr 1.47, Glucose 142, Calcium 7.5, Alk Phos 34, Albumin 3.0 Hemoglobin: 11/19: 12.4. 11/20: 12.9. 11/21: 11.7 Hematocrit: 11/19: 36.3. 11/20: 39.6. 11/21: 36.4 Treatment 11/19: Telem, IV Ibuprofen 258 mls @ 500 mls/hr x1, IV Zofran 4 mg x1, IV Na Cl 1,000 mls @ 999 mls/hr q1H, IV BAM, IV Na Cl 50 mls @300 mls/hr x1, IV Na Cl 1,000 mls @ 999 mls/hr q1H, IV Zofran, IV Na Cl 1,000 mls @ 75 mls/hr q13H. Home meds: Prednisone, [place], Baclofen, Gabapentin. Please clarify the type and acuity of anemia: [ ] Chronic blood loss anemia [ ] Iron deficiency anemia [ ] Hemolytic anemia [ ] Drug induced anemia [ ] Anemia of chronic disease [ ] Unable to determine [ ] Other, please specify (Template Last Revised: December 2020) [ x] Other, please specify Dilutional MTDD
--- NOTE | 2021-11-22 17:09 | P.PN ---
Subjective Progress Note Date: 11/22/21 (delayed charting seen at 1045) Principal diagnosis: shortness of breath Patient is a 46-year-old -[place] male for history of congenital heart condition, pacemaker, who presented to the hospital with complaints of worsening body aches, weakness, nausea, vomiting, and diarrhea. He had tested positive for cocaine on 11/18. In the ER he underwent an extensive evaluation. He did have a fever of 103.2. He had borderline blood pressures in the 70s to 90s desp ite fluid resuscitation. He was found have a BUN of 28, creatinine 1.5, and sodium of 131. He was admitted and started on IV fluids. He underwent an echocardiogram 50-55%, CT of the chest was without pulmonary embolism. He was evaluated by cardiology who felt he could receive adequate fluid resuscitation and follow up outpatient with his primary staple shear operator of [facility]. He has increasing O2 requirements and was started on dexamethasone on 11/22 they continued to increase so pulm was consulted and he was started on Remdesivir. Patient seen and examined at bedside. He is feeling better today, still shortness of breath, appetite is slightly better, no nausea, no vomiting. Encourage to prone and increase activity. General: ill appearing, no distress, appears at stated age Derm: warm, dry Head: atraumatic, normocephalic, symmetric Eyes: EOMI, no lid lag, anicteric sclera Mouth: no lip lesion, mucus membranes dry Cardiovascular: S1S2 reg, no murmur, positive posterior tibial pulse bilateral, Lungs: Course bs bilateral, no rhonchi, no rales , no accessory muscle use Abdominal: soft, nontender to palpation, no guarding, no appreciable organomegaly Ext: no gross muscle atrophy, no edema, no contractures Neuro: CN II-XI grossly intact, no focal neuro deficits Psych: Alert, oriented, appropriate affect COVID-19 pneumonitis in an unvaccinated individual Acute hypoxic respiratory failure - dexamethasone - pulm recs appreciated: Rem started on 11/22 -Albuterol - IV fluids completed - zinc, vit C, Vit D - pulm hygiene - prn broncho dilators Anemia, due to dilution - follow CBC Congential heart defect - interrogate PPM if able - Echo with preserved EF - Follow-up with outpatient primary staple shear operator. Dehydration, resolved [place], resolved Hyponatremia , Thromboctyopenia, resolved Objective - Vital Signs Vital signs: Vital Signs Temp 98.6 F 11/22/21 14:00 Pulse 83 11/22/21 14:00 Resp 18 11/22/21 14:00 BP 107/62 11/22/21 14:00 Pulse Ox 90 L 11/22/21 14:00 Intake & Output 11/21/21 11/22/21 11/22/21 18:59 06:59 18:59 Other: # Voids 2 2 # Bowel Movements 1 0 - Labs CBC & Chem 7: 11/21/21 08:07 11/21/21 08:07 Labs: Abnormal Lab Results - Last 24 Hours (Table) 11/22/21 Range/Units 15:36 D-Dimer 2.08 H (<0.60) mg/L FEU
[2021-11-22] MEDS ORDERED: REMDESIVIR 200 MG in SODIUM CHLORIDE 0.9% 250 ML IVPB ONE (19:00)
[2021-11-22] MEDS: ACETAMINOPHEN TAB 325 MG TAB PO PRN (21:01)
[2021-11-23 01:21] LABS: C Reactive Protein 16.5 mg/dL (0.00-0.80)
[2021-11-23 06:09] LABS: HCT 38.7 % (39.0-53.0); HGB 12.1 gm/dL (13.0-17.5); Hypochromasia Slight; MCH 32.7 pg (25.0-35.0); MCHC 31.2 g/dL (31.0-37.0); MCV 104.6 fL (80.0-100.0); Macrocytosis Slight; RBC 3.71 m/uL (4.30-5.90); RDW 12.7 % (11.5-15.5); WBC 8.5 k/uL (3.8-10.6)
[2021-11-23 06:14] LABS: Platelet Count 332 k/uL (150-450)
[2021-11-23 06:26] LABS: ALT 50 U/L (4-49); AST 80 U/L (17-59); African American GFR (CKD) >90 (>60 ml/min/1.73 sqM); Albumin 2.9 g/dL (3.5-5.0); Albumin/Globulin Ratio 0.8; Alkaline Phosphatase 56 U/L (38-126); Anion Gap 5 mmol/L; Blood Urea Nitrogen 20 mg/dL (9-20); Calcium 8.2 mg/dL (8.4-10.2); Carbon Dioxide 25 mmol/L (22-30); Chloride 109 mmol/L (98-107); Globulin 3.8 g/dL; Glucose 131 mg/dL (74-99); LDH 1785 U/L (313-618); Non-African American GFR(CKD) >90 (>60 ml/min/1.73 sqM); Potassium 4.4 mmol/L (3.5-5.1); Sodium 139 mmol/L (137-145); Total Bilirubin 0.8 mg/dL (0.2-1.3); Total Protein 6.7 g/dL (6.3-8.2)
[2021-11-23 07:36] LABS: C Reactive Protein 15.1 mg/dL (<1.0)
[2021-11-23] MEDS: ALBUTEROL HFA INHALER INHALATION SCH ×4 (08:15→19:55)
[2021-11-23] MEDS: ASCORBIC ACID 500 MG TAB PO SCH (09:35)
[2021-11-23] MEDS: ENOXAPARIN 40 MG/0.4 ML SYRINGE SQ SCH (09:36)
[2021-11-23] MEDS: DEXAMETHASONE SOD PHOSPHATE 10 MG/ML 1 ML VIAL IVP SCH (09:36)
[2021-11-23] MEDS: CHOLECALCIFEROL 25 MCG (1000 IU) TABLET PO SCH (09:36)
[2021-11-23] MEDS: ZINC SULFATE 220 MG CAP PO SCH (09:36)
--- NOTE | 2021-11-23 16:26 | P.PN ---
Subjective Progress Note Date: 11/23/21 Principal diagnosis: CoVID pneumonia This a pleasant 46-year-old male patient who presented to the emergency room initially on 11/18/2021 with complaints of fever, body aches, weakness nausea cough congestion. Tested positive for CoVID19. He is not vaccinated. 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 No other medical history. He was treated with Decadron and Tylenol and subsequently discharged. He represented to the emergency room on 11/19/2021. He did receive monoclonal antibodies in the emergency room. A CT an giogram revealed bilateral patchy opacities. He is also having issues with hypotension and was admitted for the same. He is seen today in consultation on the regular medical floor. He is currently resting fairly comfortably in bed. Awake and alert. He is maintaining O2 saturation the high 80s low 90s on 4 L high flow nasal cannula. He's been afebrile the past 24 hours. Did present with a T-max of 103.2. Sputum culture pending. White count 7.7. Hemoglobin 11.7. Lymphocytes 0.6. Sodium 141 potassium 4.3. Creatinine 0.9. Pro- calcitonin 0.40. He's been initiated on Decadron, Lovenox, vitamin supplements. CT angiogram ruled out pulmonary embolism however there was scattered multif ocal areas of groundglass opacities consistent with COVID-19 pneumonia. The patient is seen today 11/23/2021 in follow-up on the regular medical floor. He is currently resting quite comfortably in bed. Awake and alert in no acute distress. He is maintaining O2 saturation in the low 90s on 5 L high flow nasal cannula. He's been afebrile. Hemodynamically stable. Sputum culture revealed no growth. White count 8.5. Hemoglobin 12.1. D-dimer 2.24. Sodium 139. Potassium 4.4. Creatinine 0.86. LDH 1785. C-reactive protein 15.1. He is continued on Decadron, Lovenox, vitamin supplements. This is day #2 of Remdesivir. Objective - Vital Signs Vital signs: Vital Signs Temp 98.3 F 11/23/21 14:38 Pulse 54 L 11/23/21 14:38 Resp 17 11/23/21 14:38 BP 111/68 11/23/21 14:38 Pulse Ox 90 L 11/23/21 14:38 Intake & Output 11/22/21 11/23/21 11/23/21 18:59 06:59 18:59 Intake Total 200 Balance 200 Intake: Oral 200 Other: Voiding Method Urinal # Voids 2 - Exam GENERAL EXAM: Alert, very pleasant 46-year-old male patient, on 5 L high flow nasal cannula, fairly comfortable in no apparent distress. HEAD: Normocephalic. EYES: Normal reaction of pupils, equal size. NOSE: Clear with pink turbinates. THROAT: No erythema or exudates. NECK: No masses, no JVD. CHEST: No chest wall deformity. LUNGS: Equal air entry with crackles in the bilateral bases CVS: S1 and S2 normal with no audible murmur, regular rhythm. ABDOMEN: No hepatosplenomegaly, normal bowel sounds, no guarding or rigidity. SPINE: No scoliosis or deformity SKIN: No rashes CENTRAL NERVOUS SYSTEM: No focal deficits, tone is normal in all 4 extremities. EXTREMITIES: There is no peripheral edema. No clubbing, no cyanosis. Peripheral pulses are intact. - Labs CBC & Chem 7: 11/23/21 05:28 11/23/21 05:28 Labs: Abnormal Lab Results - Last 24 Hours (Table) 11/22/21 11/23/21 11/23/21 Range/Units 15:36 05:28 05:28 RBC 3.71 L (4.30-5.90) m/uL Hgb 12.1 L (13.0-17.5) gm/dL Hct 38.7 L (39.0-53.0) % MCV 104.6 H (80.0-100.0) fL D-Dimer 2.24 H (<0.60) mg/L FEU Chloride (98-107) mmol/L Glucose (74-99) mg/dL Calcium (8.4-10.2) mg/dL AST (17-59) U/L ALT (4-49) U/L Lactate Dehydrogenase 559 H (120-246) U/L C-Reactive Protein 16.50 H (0.00-0.80) mg/dL Albumin (3.5-5.0) g/dL 11/23/21 Range/Units 05:28 RBC (4.30-5.90) m/uL Hgb (13.0-17.5) gm/dL Hct (39.0-53.0) % MCV (80.0-100.0) fL D-Dimer (<0.60) mg/L FEU Chloride 109 H (98-107) mmol/L Glucose 131 H (74-99) mg/dL Calcium 8.2 L (8.4-10.2) mg/dL AST 80 H (17-59) U/L ALT 50 H (4-49) U/L Lactate Dehydrogenase 1785 H (120-246) U/L C-Reactive Protein 15.1 H (0.00-0.80) mg/dL Albumin 2.9 L (3.5-5.0) g/dL Microbiology - Last 24 Hours (Table) 11/20/21 20:14 Gram Stain - Final Sputum Sputum Culture - Final Assessment and Plan Assessment: 1 Acute COVID-19 pneumonia. Symptoms started less than 1 week ago. On 5 L nasal cannula. Not vaccinated. We'll initiate Remdesivir. Continue Decadron, Lovenox, vitamin supplements. CT angiogram ruled out pulmonary embolism. There is evidence of bilateral patchy opacities consistent with COVID-19 pneumonia. 2 History of cardiac congenital defect status post permanent pacemaker implantation Plan: The patient was seen and evaluated Continue Remdesivir, Day #2 Continue Decadron, Lovenox, vitamin supplements Titrate the FiO2 as tolerated Follow-up chest x-ray and labs in the a.m. We will continue to follow I, the cosigning physician, performed a history & physical examination of the patient. Lungs sounds crackles in the bilateral bases. Maintaining O2 saturations in the 90s on 5 L/m per nasal cannula. I discussed the assessment and plan of care with my nurse practitioner, Luciana French. I attest to the above note as dictated by her.
--- NOTE | 2021-11-23 17:06 | P.PN ---
Subjective Progress Note Date: 11/23/21 (Delayed charting seen at 12:30) Principal diagnosis: shortness of breath Patient is a 46-year-old -Citizen Of [place] male for history of congenital heart condition, pacemaker, who presented to the hospital with complaints of worsening body aches, weakness, nausea, vomiting, and diarrhea. He had tested positive for cocaine on 11/18. In the ER he underwent an extensive evaluation. He did have a fever of 103.2. He had borderline blood pressures in the 70s to 90s esa pite fluid resuscitation. He was found have a BUN of 28, creatinine 1.5, and sodium of 131. He was admitted and started on IV fluids. He underwent an echocardiogram 50-55%, CT of the chest was without pulmonary embolism. He was evaluated by cardiology who felt he could receive adequate fluid resuscitation and follow up outpatient with his primary park recreation manager of [facility]. He has increasing O2 requirements and was started on dexamethasone on 11/22 they continued to increase so pulm was consulted and he was started on Remdesivir. His O2 requirements again when up to 5 L on 11/23. Patient seen and examined at bedside. He has been moving around in the bed more today. He still has some shortness of breath and overall does not feel well. His mood appears improved and he is jovial. Still with decreased appetite. General: ill appearing, no distress, appears at stated age Derm: warm, dry Head: atraumatic, normocephalic, symmetric Eyes: EOMI, no lid lag, anicteric sclera Mouth: no lip lesion, mucus membranes dry Cardiovascular: S1S2 reg, no murmur, positive posterior tibial pulse bilateral, Lungs: Course bs bilateral, no rhonchi, no rales , no accessory muscle use Abdominal: soft, nontender to palpation, no guarding, no appreciable organomegaly Ext: no gross muscle atrophy, no edema, no contractures Neuro: CN II-XI grossly intact, no focal neuro deficits Psych: Alert, oriented, appropriate affect COVID-19 pneumonitis in an unvaccinated individual Acute hypoxic respiratory failure - dexamethasone day #3 - pulm recs appreciated: Rem D # 2 -Lovenox -Albuterol - IV fluids completed - zinc, vit C, Vit D - pulm hygiene - prn broncho dilators Anemia, due to dilution - follow CBC Congential heart defect - Echo with preserved EF - Follow-up with outpatient primary park recreation manager. Dehydration, resolved [place], resolved Hyponatremia , Thromboctyopenia, resolved Home once O2 requirements are decreasing or stable Objective - Vital Signs Vital signs: Vital Signs Temp 98.3 F 11/23/21 14:38 Pulse 54 L 11/23/21 14:38 Resp 17 11/23/21 14:38 BP 111/68 11/23/21 14:38 Pulse Ox 90 L 11/23/21 14:38 Intake & Output 11/22/21 11/23/21 11/23/21 18:59 06:59 18:59 Intake Total 200 Balance 200 Intake: Oral 200 Other: Voiding Method Urinal # Voids 2 - Labs CBC & Chem 7: 11/23/21 05:28 11/23/21 05:28 Labs: Abnormal Lab Results - Last 24 Hours (Table) 11/22/21 11/23/21 11/23/21 Range/Units 15:36 05:28 05:28 RBC 3.71 L (4.30-5.90) m/uL Hgb 12.1 L (13.0-17.5) gm/dL Hct 38.7 L (39.0-53.0) % MCV 104.6 H (80.0-100.0) fL D-Dimer 2.24 H (<0.60) mg/L FEU Chloride (98-107) mmol/L Glucose (74-99) mg/dL Calcium (8.4-10.2) mg/dL AST (17-59) U/L ALT (4-49) U/L Lactate Dehydrogenase 559 H (120-246) U/L C-Reactive Protein 16.50 H (0.00-0.80) mg/dL Albumin (3.5-5.0) g/dL 11/23/21 Range/Units 05:28 RBC (4.30-5.90) m/uL Hgb (13.0-17.5) gm/dL Hct (39.0-53.0) % MCV (80.0-100.0) fL D-Dimer (<0.60) mg/L FEU Chloride 109 H (98-107) mmol/L Glucose 131 H (74-99) mg/dL Calcium 8.2 L (8.4-10.2) mg/dL AST 80 H (17-59) U/L ALT 50 H (4-49) U/L Lactate Dehydrogenase 1785 H (120-246) U/L C-Reactive Protein 15.1 H (0.00-0.80) mg/dL Albumin 2.9 L (3.5-5.0) g/dL Microbiology - Last 24 Hours (Table) 11/20/21 20:14 Gram Stain - Final Sputum Sputum Culture - Final
[2021-11-23] MEDS: REMDESIVIR 100 MG in SODIUM CHLORIDE 0.9% 250 ML IVPB SCH (21:03)
--- NOTE | 2021-11-24 08:15 | XR ---
EXAMINATION TYPE: XR chest 1V portable DATE OF EXAM: 11/24/2021 Comparison: 11/19/2021 Clinical History: 46-year-old male COVID-19 pneumonia Findings: Heart normal size. Left anterior chest wall pacemaker generator with right atrial and right ventricul ar leads. Aorta within normal limits. Patchy interstitial changes mid and lower lungs, left greater t glez right show slight interval increase. Impression: Mild interstitial infiltrates, left greater than right, show slight interval increase.
[2021-11-24] MEDS: DEXAMETHASONE SOD PHOSPHATE 10 MG/ML 1 ML VIAL IVP SCH (08:27)
[2021-11-24] MEDS: ENOXAPARIN 40 MG/0.4 ML SYRINGE SQ SCH (08:27)
[2021-11-24] MEDS: ASCORBIC ACID 500 MG TAB PO SCH (08:28)
[2021-11-24] MEDS: ZINC SULFATE 220 MG CAP PO SCH (08:28)
[2021-11-24] MEDS: CHOLECALCIFEROL 25 MCG (1000 IU) TABLET PO SCH (08:28)
[2021-11-24] MEDS: ALBUTEROL HFA INHALER INHALATION SCH ×4 (09:16→21:21)
[2021-11-24 09:46] LABS: ALT 101 U/L (4-49); AST 85 U/L (17-59); African American GFR (CKD) >90 (>60 ml/min/1.73 sqM); Albumin/Globulin Ratio 0.8; Alkaline Phosphatase 54 U/L (38-126); Anion Gap 10 mmol/L; Blood Urea Nitrogen 26 mg/dL (9-20); Calcium 8.2 mg/dL (8.4-10.2); Carbon Dioxide 21 mmol/L (22-30); Chloride 109 mmol/L (98-107); Glucose 129 mg/dL (74-99); LDH 1881 U/L (313-618); Non-African American GFR(CKD) >90 (>60 ml/min/1.73 sqM); Potassium 4.6 mmol/L (3.5-5.1); Sodium 140 mmol/L (137-145); Total Bilirubin 0.7 mg/dL (0.2-1.3)
[2021-11-24 13:07] VITALS: BMI 29.5
--- NOTE | 2021-11-24 14:49 | P.PN ---
Subjective Progress Note Date: 11/24/21 Principal diagnosis: CoVID pneumonia This a pleasant 46-year-old male patient who presented to the emergency room initially on 11/18/2021 with complaints of fever, body aches, weakness nausea cough congestion. Tested positive for CoVID19. He is not vaccinated. 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 No other medical history. He was treated with Decadron and Tylenol and subsequently discharged. He represented to the emergency room on 11/19/2021. He did receive monoclonal antibodies in the emergency room. A CT an giogram revealed bilateral patchy opacities. He is also having issues with hypotension and was admitted for the same. He is seen today in consultation on the regular medical floor. He is currently resting fairly comfortably in bed. Awake and alert. He is maintaining O2 saturation the high 80s low 90s on 4 L high flow nasal cannula. He's been afebrile the past 24 hours. Did present with a T-max of 103.2. Sputum culture pending. White count 7.7. Hemoglobin 11.7. Lymphocytes 0.6. Sodium 141 potassium 4.3. Creatinine 0.9. Pro- calcitonin 0.40. He's been initiated on Decadron, Lovenox, vitamin supplements. CT angiogram ruled out pulmonary embolism however there was scattered multif ocal areas of groundglass opacities consistent with COVID-19 pneumonia. The patient is seen today 11/23/2021 in follow-up on the regular medical floor. He is currently resting quite comfortably in bed. Awake and alert in no acute distress. He is maintaining O2 saturation in the low 90s on 5 L high flow nasal cannula. He's been afebrile. Hemodynamically stable. Sputum culture revealed no growth. White count 8.5. Hemoglobin 12.1. D-dimer 2.24. Sodium 139. Potassium 4.4. Creatinine 0.86. LDH 1785. C-reactive protein 15.1. He is continued on Decadron, Lovenox, vitamin supplements. This is day #2 of Remdesivir. Patient seen today 11/24/2021 follow-up on the regular medical floor. He is much more awake and alert today. No worsening shortness of breath, cough or congestion. He still requiring 5 L high flow nasal cannula to maintain O2 saturations in the high 80s low 90s. Chest x-ray reveals mild interstitial infiltrates left greater than right. Slight interval increase. Sputum culture revealed no growth. D-dimer 4.03. Sodium 140. Potassium 4.6. Bicarb 21. Creatinine 0.83. Glucose 129. AST 85. ALT 101. LDH 1881. C-reactive protein 6.0. This day #3 of Remdesivir. He remains on Decadron, Lovenox, vitamin supplements. Objective - Vital Signs Vital signs: Vital Signs Temp 97.9 F 11/24/21 09:22 Pulse 63 11/24/21 09:22 Resp 18 11/24/21 09:22 BP 115/75 11/24/21 09:22 Pulse Ox 89 L 11/24/21 09:22 Intake & Output 11/23/21 11/24/21 11/24/21 18:59 06:59 18:59 Weight 90.718 kg Other: Voiding Method Urinal Toilet Urinal # Voids 2 3 - Exam GENERAL EXAM: Alert, very pleasant 46-year-old male patient, on 5 L high flow nasal cannula, fairly comfortable in no apparent distress. HEAD: Normocephalic. EYES: Normal reaction of pupils, equal size. NOSE: Clear with pink turbinates. THROAT: No erythema or exudates. NECK: No masses, no JVD. CHEST: No chest wall deformity. LUNGS: Equal air entry with crackles in the bilateral bases CVS: S1 and S2 normal with no audible murmur, regular rhythm. ABDOMEN: No hepatosplenomegaly, normal bowel sounds, no guarding or rigidity. SPINE: No scoliosis or deformity SKIN: No rashes CENTRAL NERVOUS SYSTEM: No focal deficits, tone is normal in all 4 extremities. EXTREMITIES: There is no peripheral edema. No clubbing, no cyanosis. Peripheral pulses are intact. - Labs CBC & Chem 7: 11/23/21 05:28 11/24/21 08:39 Labs: Abnormal Lab Results - Last 24 Hours (Table) 11/24/21 11/24/21 Range/Units 08:39 08:39 D-Dimer 4.03 H (<0.60) mg/L FEU Chloride 109 H (98-107) mmol/L Carbon Dioxide 21 L (22-30) mmol/L BUN 26 H (9-20) mg/dL Glucose 129 H (74-99) mg/dL Calcium 8.2 L (8.4-10.2) mg/dL AST 85 H (17-59) U/L ALT 101 H (4-49) U/L Lactate Dehydrogenase 1881 H (313-618) U/L C-Reactive Protein 6.0 H (<1.0) mg/dL Albumin 3.0 L (3.5-5.0) g/dL Assessment and Plan Assessment: 1 Acute COVID-19 pneumonia. Symptoms started less than 1 week ago. On 5 L nasal cannula. Not vaccinated. We'll initiate Remdesivir. Continue Decadron, Lovenox, vitamin supplements. CT angiogram ruled out pulmonary embolism. There is evidence of bilateral patchy opacities consistent with COVID-19 pneumonia. 2 History of cardiac congenital defect status post permanent pacemaker implantation Plan: The patient was seen and evaluated Improving and feeling stronger today Continue Remdesivir, Day #3 Continue Decadron, Lovenox, vitamin supplements Titrate the FiO2 as tolerated We will continue to follow I, the cosigning physician, performed a history & physical examination of the patient. Lungs sounds crackles in the bilateral bases. Maintaining O2 saturations in the 90s on 5 L/m per nasal cannula. I discussed the assessment and plan of care with my nurse practitioner, Luciana French. I attest to the above note as dictated by her.
--- NOTE | 2021-11-24 19:51 | P.PN ---
Subjective Progress Note Date: 11/24/21 Principal diagnosis: shortness of breath Patient is a 46-year-old -[place] male for history of congenital heart condition, pacemaker, who presented to the hospital with complaints of worsening body aches, weakness, nausea, vomiting, and diarrhea. He had tested positive for cocaine on 11/18. In the ER he underwent an extensive evaluation. He did have a fever of 103.2. He had borderline blood pressures in the 70s to 90s despite fluid resuscitation. He was found have a BUN of 28, creatinine 1.5, and sodium of 131. He was admitted and started on IV fluids. He underwent an echocardiogram 50-55%, CT of the chest was without pulmonary embolism. He was e valuated by cardiology who felt he could receive adequate fluid resuscitation and follow up outpatient with his primary drafter assistant of [facility]. He has increasing O2 requirements and was started on dexamethasone on 11/22 they continued to increase so pulm was consulted and he was started on Remdesivir. His O2 requirements again when up to 5 L on 11/23. Patient seen and examined at bedside. Breathing bettter, diarrhea resolved, appetite returning. General: ill appearing, no distress, appears at stated age Derm: warm, dry Head: atraumatic, normocephalic, symmetric Eyes: EOMI, no lid lag, anicteric sclera Mouth: no lip lesion, mucus membranes dmoist Cardiovascular: S1S2 reg, no murmur, positive posterior tibial pulse bilateral, Lungs: Course bs bilateral, no rhonchi, no rales , no accessory muscle use Abdominal: soft, nontender to palpation, no guarding, no appreciable organomegaly Ext: no gross muscle atrophy, no edema, no contractures Neuro: CN II-XI grossly intact, no focal neuro deficits Psych: Alert, oriented, appropriate affect COVID-19 pneumonitis in an unvaccinated individual Acute hypoxic respiratory failure - dexamethasone day #4 - pulm recs appreciated: Rem D # 3 -Lovenox -Albuterol - IV fluids completed - zinc, vit C, Vit D - pulm hygiene - prn broncho dilators Anemia, due to dilution - follow CBC Congential heart defect - Echo with preserved EF - Follow-up with outpatient primary drafter assistant. Dehydration, resolved [place], resolved Hyponatremia , Thromboctyopenia, resolved Home once O2 requirements are decreasing or stable. Likely in 1-2 days Objective - Vital Signs Vital signs: Vital Signs Temp 98.4 F 11/24/21 18:01 Pulse 63 11/24/21 18:01 Resp 16 11/24/21 18:01 BP 117/79 11/24/21 18:01 Pulse Ox 95 11/24/21 18:01 Intake & Output 11/24/21 11/24/21 11/25/21 06:59 18:59 06:59 Intake Total 720 Balance 720 Weight 90.718 kg Intake: Oral 720 Other: Voiding Method Toilet Urinal # Voids 3 1 - Labs CBC & Chem 7: 11/23/21 05:28 11/24/21 08:39 Labs: Abnormal Lab Results - Last 24 Hours (Table) 11/24/21 11/24/21 Range/Units 08:39 08:39 D-Dimer 4.03 H (<0.60) mg/L FEU Chloride 109 H (98-107) mmol/L Carbon Dioxide 21 L (22-30) mmol/L BUN 26 H (9-20) mg/dL Glucose 129 H (74-99) mg/dL Calcium 8.2 L (8.4-10.2) mg/dL AST 85 H (17-59) U/L ALT 101 H (4-49) U/L Lactate Dehydrogenase 1881 H (313-618) U/L C-Reactive Protein 6.0 H (<1.0) mg/dL Albumin 3.0 L (3.5-5.0) g/dL
[2021-11-24] MEDS: REMDESIVIR 100 MG in SODIUM CHLORIDE 0.9% 250 ML IVPB SCH (20:00)
[2021-11-25] MEDS: ALBUTEROL HFA INHALER INHALATION SCH ×4 (08:56→19:47)
[2021-11-25] MEDS: CHOLECALCIFEROL 25 MCG (1000 IU) TABLET PO SCH (10:24)
[2021-11-25] MEDS: ASCORBIC ACID 500 MG TAB PO SCH (10:24)
[2021-11-25] MEDS: DEXAMETHASONE SOD PHOSPHATE 10 MG/ML 1 ML VIAL IVP SCH (10:24)
[2021-11-25] MEDS: ENOXAPARIN 40 MG/0.4 ML SYRINGE SQ SCH (10:25)
[2021-11-25] MEDS: ZINC SULFATE 220 MG CAP PO SCH (10:25)
--- NOTE | 2021-11-25 11:29 | P.PN ---
Subjective Progress Note Date: 11/25/21 Shortness of breath improving oxygen continues to be weaned down patient continues to be on 5 L oxygen Patient is a 46-year-old -[place] male for history of congenital heart condition, pacemaker, who presented to the hospital with complaints of worsening body aches, weakness, nausea, vomiting, and diarrhea. He had tested positive for cocaine on 11/18. In the ER he underwent an extensive evaluation. He did have a fever of 103.2. He had borderline blood pressures in the 70s to 90s d espite fluid resuscitation. He was found have a BUN of 28, creatinine 1.5, and sodium of 131. He was admitted and started on IV fluids. He underwent an echocardiogram 50-55%, CT of the chest was without pulmonary embolism. He was evaluated by cardiology who felt he could receive adequate fluid resuscitation and follow up outpatient with his primary production control technologist of [facility]. He has increasing O2 requirements and was started on dexamethasone on 11/22 they continued to increase so pulm was consulted and he was started on Remdesivir. His O2 requirements again when up to 5 L on 11/23. Patient seen and examined at bedside. Breathing bettter, diarrhea resolved, appetite returning. General: ill appearing, no distress, appears at stated age Derm: warm, dry Head: atraumatic, normocephalic, symmetric Eyes: EOMI, no lid lag, anicteric sclera Mouth: no lip lesion, mucus membranes dmoist Cardiovascular: S1S2 reg, no murmur, positive posterior tibial pulse bilateral, Lungs: , no accessory muscle use Abdominal: Ext: no gross muscle atrophy, no edema, no contractures Neuro: CN II-XI grossly intact, no focal neuro deficits Psych: Alert, oriented, appropriate affect COVID-19 pneumonitis in an unvaccinated individual Acute hypoxic respiratory failure - dexamethasone day #4 - pulm recs appreciated: Rem D # 3 -Lovenox -Albuterol - IV fluids completed - zinc, vit C, Vit D - pulm hygiene - prn broncho dilators Anemia, due to dilution - follow CBC Congential heart defect - Echo with preserved EF - Follow-up with outpatient primary production control technologist. Dehydration, resolved [place], resolved Hyponatremia , Thromboctyopenia, resolved Home once O2 requirements are decreasing or stable. Likely in 1-2 days Overall stable Objective - Vital Signs Vital signs: Vital Signs Temp 98.1 F 11/25/21 09:38 Pulse 75 11/25/21 09:38 Resp 16 11/25/21 09:38 BP 115/71 11/25/21 09:38 Pulse Ox 90 L 11/25/21 09:38 Intake & Output 11/24/21 11/25/21 11/25/21 18:59 06:59 18:59 Intake Total 720 Balance 720 Weight 90.718 kg Intake: Oral 720 Other: Voiding Method Toilet Toilet Toilet Urinal Urinal Urinal # Voids 1 550 - Labs CBC & Chem 7: 11/23/21 05:28 11/24/21 08:39
--- NOTE | 2021-11-25 12:16 | P.PN ---
Subjective Progress Note Date: 11/25/21 Principal diagnosis: CoVID pneumonia This a pleasant 46-year-old male patient who presented to the emergency room initially on 11/18/2021 with complaints of fever, body aches, weakness nausea cough congestion. Tested positive for CoVID19. He is not vaccinated. 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 No other medical history. He was treated with Decadron and Tylenol and subsequently discharged. He represented to the emergency room on 11/19/2021. He did receive monoclonal antibodies in the emergency room. A CT an giogram revealed bilateral patchy opacities. He is also having issues with hypotension and was admitted for the same. He is seen today in consultation on the regular medical floor. He is currently resting fairly comfortably in bed. Awake and alert. He is maintaining O2 saturation the high 80s low 90s on 4 L high flow nasal cannula. He's been afebrile the past 24 hours. Did present with a T-max of 103.2. Sputum culture pending. White count 7.7. Hemoglobin 11.7. Lymphocytes 0.6. Sodium 141 potassium 4.3. Creatinine 0.9. Pro- calcitonin 0.40. He's been initiated on Decadron, Lovenox, vitamin supplements. CT angiogram ruled out pulmonary embolism however there was scattered multif ocal areas of groundglass opacities consistent with COVID-19 pneumonia. The patient is seen today 11/23/2021 in follow-up on the regular medical floor. He is currently resting quite comfortably in bed. Awake and alert in no acute distress. He is maintaining O2 saturation in the low 90s on 5 L high flow nasal cannula. He's been afebrile. Hemodynamically stable. Sputum culture revealed no growth. White count 8.5. Hemoglobin 12.1. D-dimer 2.24. Sodium 139. Potassium 4.4. Creatinine 0.86. LDH 1785. C-reactive protein 15.1. He is continued on Decadron, Lovenox, vitamin supplements. This is day #2 of Remdesivir. Patient seen today 11/24/2021 follow-up on the regular medical floor. He is much more awake and alert today. No worsening shortness of breath, cough or congestion. He still requiring 5 L high flow nasal cannula to maintain O2 saturations in the high 80s low 90s. Chest x-ray reveals mild interstitial infiltrates left greater than right. Slight interval increase. Sputum culture revealed no growth. D-dimer 4.03. Sodium 140. Potassium 4.6. Bicarb 21. Creatinine 0.83. Glucose 129. AST 85. ALT 101. LDH 1881. C-reactive protein 6.0. This day #3 of Remdesivir. He remains on Decadron, Lovenox, vitamin supplements. The patient is seen today 11/25/2021 in follow-up on the regular medical floor. He is currently resting quite comfortably in bed. Awake and alert in no acute distress. He is down to 4 L nasal cannula and maintaining O2 saturations in the 90s. He's been up ambulating in his room. He is feeling better each day. He is continued on Decadron, Lovenox, vitamin supplements. He is receiving Remdesivir day #4. His labs are pending. Objective - Vital Signs Vital signs: Vital Signs Temp 98.1 F 11/25/21 09:38 Pulse 75 11/25/21 09:38 Resp 16 11/25/21 09:38 BP 115/71 11/25/21 09:38 Pulse Ox 90 L 11/25/21 09:38 Intake & Output 11/24/21 11/25/21 11/25/21 18:59 06:59 18:59 Intake Total 720 Balance 720 Weight 90.718 kg Intake: Oral 720 Other: Voiding Method Toilet Toilet Toilet Urinal Urinal Urinal # Voids 1 550 - Exam GENERAL EXAM: Alert, very pleasant 46-year-old male patient, on 4 L nasal cannula, fairly comfortable in no apparent distress. HEAD: Normocephalic. EYES: Normal reaction of pupils, equal size. NOSE: Clear with pink turbinates. THROAT: No erythema or exudates. NECK: No masses, no JVD. CHEST: No chest wall deformity. LUNGS: Equal air entry with crackles in the bilateral bases CVS: S1 and S2 normal with no audible murmur, regular rhythm. ABDOMEN: No hepatosplenomegaly, normal bowel sounds, no guarding or rigidity. SPINE: No scoliosis or deformity SKIN: No rashes CENTRAL NERVOUS SYSTEM: No focal deficits, tone is normal in all 4 extremities. EXTREMITIES: There is no peripheral edema. No clubbing, no cyanosis. Peripheral pulses are intact. - Labs CBC & Chem 7: 11/23/21 05:28 11/24/21 08:39 Assessment and Plan Assessment: 1 Acute COVID-19 pneumonia. Symptoms started less than 1 week ago. On 4 L nasal cannula. Not vaccinated. Receiving Remdesivir. Continue Decadron, Lovenox, vitamin supplements. CT angiogram ruled out pulmonary embolism. There is evidence of bilateral patchy opacities consistent with COVID-19 pneumonia. 2 History of cardiac congenital defect status post permanent pacemaker implantation Plan: The patient was seen and evaluated Improving and feeling stronger today Down to 4 L nasal cannula Continue Remdesivir, Day #4 Continue Decadron, Lovenox, vitamin supplements Titrate the FiO2 as tolerated We will continue to follow I, the cosigning physician, performed a history & physical examination of the patient. Lungs sounds crackles in the bilateral bases. Maintaining O2 saturations in the 90s on 4 L/m per nasal cannula. I discussed the assessment and plan of care with my nurse practitioner, Luciana French. I attest to the above note as dictated by her.
[2021-11-25 13:34] LABS: HCT 40.4 % (39.6-50.0); HGB 12.6 g/dL (13.0-17.0); MCH 32.2 pg (27.0-32.0); MCHC 31.2 g/dL (32.0-37.0); MCV 103.3 fL (80.0-97.0); Mean Platelet Volume 11.1 fL (9.5-12.2); Platelet Count 317 X 10*3/uL (140-440); RBC 3.91 X 10*6/uL (4.40-5.60); RDW 13.2 % (11.5-14.5); WBC 12.22 X 10*3/uL (4.50-10.00)
[2021-11-25 14:22] LABS: C Reactive Protein 4.3 mg/dL (0.00-0.80)
[2021-11-25 14:31] LABS: African American GFR (CKD) 117.5 (60.0-200.0); Albumin/Globulin Ratio 0.79 (1.60-3.17); Anion Gap 14.6 mmol/L (10.00-18.00); BUN/Creat Ratio 19.33 Ratio (12.00-20.00); Blood Urea Nitrogen 17.4 mg/dL (9.0-27.0); Calcium 8.1 mg/dL (8.7-10.3); Carbon Dioxide 17.4 mmol/L (20.0-27.5); Globulin 3.8 g/dL (1.6-3.3); Non-African American GFR(CKD) 101.4 (60.0-200.0); Potassium 4.6 mmol/L (3.5-5.5); Total Bilirubin 0.6 mg/dL (0.30-1.20); Total Protein 6.8 g/dL (6.2-8.2)
[2021-11-25] MEDS: REMDESIVIR 100 MG in SODIUM CHLORIDE 0.9% 250 ML IVPB SCH (21:07)
[2021-11-26] MEDS: ALBUTEROL HFA INHALER INHALATION SCH ×4 (09:10→21:57)
[2021-11-26] MEDS: ACETAMINOPHEN TAB 325 MG TAB PO PRN (09:50)
[2021-11-26] MEDS: ASCORBIC ACID 500 MG TAB PO SCH (09:50)
[2021-11-26] MEDS: ZINC SULFATE 220 MG CAP PO SCH (09:51)
[2021-11-26] MEDS: DEXAMETHASONE SOD PHOSPHATE 10 MG/ML 1 ML VIAL IVP SCH (09:51)
[2021-11-26] MEDS: ENOXAPARIN 40 MG/0.4 ML SYRINGE SQ SCH (09:51)
[2021-11-26] MEDS: CHOLECALCIFEROL 25 MCG (1000 IU) TABLET PO SCH (09:51)
--- NOTE | 2021-11-26 13:38 | P.PN ---
Subjective Progress Note Date: 11/26/21 Principal diagnosis: CoVID pneumonia This a pleasant 46-year-old male patient who presented to the emergency room initially on 11/18/2021 with complaints of fever, body aches, weakness nausea cough congestion. Tested positive for CoVID19. He is not vaccinated. 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 No other medical history. He was treated with Decadron and Tylenol and subsequently discharged. He represented to the emergency room on 11/19/2021. He did receive monoclonal antibodies in the emergency room. A CT an giogram revealed bilateral patchy opacities. He is also having issues with hypotension and was admitted for the same. He is seen today in consultation on the regular medical floor. He is currently resting fairly comfortably in bed. Awake and alert. He is maintaining O2 saturation the high 80s low 90s on 4 L high flow nasal cannula. He's been afebrile the past 24 hours. Did present with a T-max of 103.2. Sputum culture pending. White count 7.7. Hemoglobin 11.7. Lymphocytes 0.6. Sodium 141 potassium 4.3. Creatinine 0.9. Pro- calcitonin 0.40. He's been initiated on Decadron, Lovenox, vitamin supplements. CT angiogram ruled out pulmonary embolism however there was scattered multif ocal areas of groundglass opacities consistent with COVID-19 pneumonia. The patient is seen today 11/23/2021 in follow-up on the regular medical floor. He is currently resting quite comfortably in bed. Awake and alert in no acute distress. He is maintaining O2 saturation in the low 90s on 5 L high flow nasal cannula. He's been afebrile. Hemodynamically stable. Sputum culture revealed no growth. White count 8.5. Hemoglobin 12.1. D-dimer 2.24. Sodium 139. Potassium 4.4. Creatinine 0.86. LDH 1785. C-reactive protein 15.1. He is continued on Decadron, Lovenox, vitamin supplements. This is day #2 of Remdesivir. Patient seen today 11/24/2021 follow-up on the regular medical floor. He is much more awake and alert today. No worsening shortness of breath, cough or congestion. He still requiring 5 L high flow nasal cannula to maintain O2 saturations in the high 80s low 90s. Chest x-ray reveals mild interstitial infiltrates left greater than right. Slight interval increase. Sputum culture revealed no growth. D-dimer 4.03. Sodium 140. Potassium 4.6. Bicarb 21. Creatinine 0.83. Glucose 129. AST 85. ALT 101. LDH 1881. C-reactive protein 6.0. This day #3 of Remdesivir. He remains on Decadron, Lovenox, vitamin supplements. The patient is seen today 11/25/2021 in follow-up on the regular medical floor. He is currently resting quite comfortably in bed. Awake and alert in no acute distress. He is down to 4 L nasal cannula and maintaining O2 saturations in the 90s. He's been up ambulating in his room. He is feeling better each day. He is continued on Decadron, Lovenox, vitamin supplements. He is receiving Remdesivir day #4. His labs are pending. The patient seen today 11/26/2021 in follow-up on the regular medical floor. He remains awake and alert in no acute distress. Resting quite comfortably in bed. He is still on 4 L high flow nasal cannula to maintain O2 saturations in the low 90s. No worsening shortness of breath, cough or congestion. His appetite is good. He's been up ambulating in his room. He is continued on Decadron, Lovenox, vitamin supplements. This is day #5 of his Remdesivir. White count 12.2. Hemoglobin 12.6. Sodium 139. Potassium 4.6. Creatinine 0.9. AST 56. ALT 89. C-reactive protein 4.3. Objective - Vital Signs Vital signs: Vital Signs Temp 100.7 F H 11/26/21 10:11 Pulse 95 11/26/21 10:11 Resp 18 11/26/21 06:00 BP 115/71 11/26/21 10:11 Pulse Ox 90 L 11/26/21 10:11 Intake & Output 11/25/21 11/26/21 11/26/21 18:59 06:59 18:59 Output Total 600 Balance -600 Output: Urine 600 Other: Voiding Method Toilet Toilet Toilet Urinal Urinal Urinal # Voids 2 3 - Exam GENERAL EXAM: Alert, very pleasant 46-year-old male patient, on 4 L nasal cannula, fairly comfortable in no apparent distress. HEAD: Normocephalic. EYES: Normal reaction of pupils, equal size. NOSE: Clear with pink turbinates. THROAT: No erythema or exudates. NECK: No masses, no JVD. CHEST: No chest wall deformity. LUNGS: Equal air entry with crackles in the bilateral bases CVS: S1 and S2 normal with no audible murmur, regular rhythm. ABDOMEN: No hepatosplenomegaly, normal bowel sounds, no guarding or rigidity. SPINE: No scoliosis or deformity SKIN: No rashes CENTRAL NERVOUS SYSTEM: No focal deficits, tone is normal in all 4 extremities. EXTREMITIES: There is no peripheral edema. No clubbing, no cyanosis. Peripheral pulses are intact. - Labs CBC & Chem 7: 11/25/21 08:48 11/25/21 08:48 Labs: Abnormal Lab Results - Last 24 Hours (Table) 11/25/21 Range/Units 08:48 Carbon Dioxide 17.4 L (20.0-27.5) mmol/L Calcium 8.1 L (8.7-10.3) mg/dL AST 56 H (14-35) U/L ALT 89 H (10-49) U/L C-Reactive Protein 4.30 H (0.00-0.80) mg/dL Albumin 3.0 L (3.8-4.9) g/dL Globulin 3.8 H (1.6-3.3) g/dL Albumin/Globulin Ratio 0.79 L (1.60-3.17) g/dL Assessment and Plan Assessment: 1 Acute COVID-19 pneumonia. Symptoms started less than 1 week ago. On 4 L nasal cannula. Not vaccinated. Receiving Remdesivir. Continue Decadron, Lovenox, vitamin supplements. CT angiogram ruled out pulmonary embolism. There is evidence of bilateral patchy opacities consistent with COVID-19 pneumonia. 2 History of cardiac congenital defect status post permanent pacemaker implantation Plan: The patient was seen and evaluated Down to 4 L nasal cannula Continue Remdesivir, Day #5 Continue Decadron, Lovenox, vitamin supplements Titrate the FiO2 as tolerated Possibly home in the a.m. with oxygen if needed We will continue to follow I, the cosigning physician, performed a history & physical examination of the patient. Lungs sounds crackles in the bilateral bases. Maintaining O2 saturations in the 90s on 4 L/m per nasal cannula. I discussed the assessment and plan of care with my nurse practitioner, Luciana French. I attest to the above note as dictated by her.
--- NOTE | 2021-11-26 14:01 | P.PN ---
Subjective Progress Note Date: 11/26/21 Overall continues to be improving less short of breath today Shortness of breath improving oxygen continues to be weaned down patient continues to be on 5 L oxygen Patient is a 46-year-old -[place] Islander male for history of congenital heart condition, pacemaker, who presented to the hospital with complaints of worsening body aches, weakness, nausea, vomiting, and diarrhea. He had tested positive for cocaine on 11/18. In the ER he underwent an extensive evaluation. He did have a fever of 103.2. He had borderline blood pressures in the 70s to 90s despite fluid resuscitation. He was found have a BUN of 28, creatinine 1.5, and sodium of 131. He was admitted and started on IV fluids. He underwent an echocardiogram 50-55%, CT of the chest was without pulmonary embolism. He was evaluated by cardiology who felt he could receive adequate fluid resuscitation and follow up outpatient with his primary roofing foreman of [facility]. He has increasing O2 requirements and was started on dexamethasone on 11/22 they continued to increase so pulm was consulted and he was started on Remdesivir. His O2 requirements again when up to 5 L on 11/23. Patient seen and examined at bedside. Breathing bettter, diarrhea resolved, appetite returning. General: ill appearing, no distress, appears at stated age Derm: warm, dry Head: atraumatic, normocephalic, symmetric Eyes: EOMI, no lid lag, anicteric sclera Mouth: no lip lesion, mucus membranes dmoist Cardiovascular: S1S2 reg, no murmur, positive posterior tibial pulse bilateral, Lungs: , no accessory muscle use Abdominal: Ext: no gross muscle atrophy, no edema, no contractures Neuro: CN II-XI grossly intact, no focal neuro deficits Psych: Alert, oriented, appropriate affect COVID-19 pneumonitis in an unvaccinated individual Acute hypoxic respiratory failure - dexamethasone day #4 - pulm recs appreciated: Rem D # 3 -Lovenox -Albuterol - IV fluids completed - zinc, vit C, Vit D - pulm hygiene - prn broncho dilators Anemia, due to dilution - follow CBC Congential heart defect - Echo with preserved EF - Follow-up with outpatient primary roofing foreman. Dehydration, resolved [place], resolved Hyponatremia , Thromboctyopenia, resolved Home once O2 requirements are decreasing or stable. Likely in 1-2 days Overall stable COVID-19 continue to wean oxygen hopefully discharge in a day or 2 Objective - Vital Signs Vital signs: Vital Signs Temp 98.1 F 11/25/21 09:38 Pulse 75 11/25/21 09:38 Resp 16 11/25/21 09:38 BP 115/71 11/25/21 09:38 Pulse Ox 90 L 11/25/21 09:38 Intake & Output 11/24/21 11/25/21 11/25/21 18:59 06:59 18:59 Intake Total 720 Balance 720 Weight 90.718 kg Intake: Oral 720 Other: Voiding Method Toilet Toilet Toilet Urinal Urinal Urinal # Voids 1 550 - Labs CBC & Chem 7: 11/23/21 05:28 11/24/21 08:39 Objective - Vital Signs Vital signs: Vital Signs Temp 100.7 F H 11/26/21 10:11 Pulse 95 11/26/21 10:11 Resp 18 11/26/21 06:00 BP 115/71 11/26/21 10:11 Pulse Ox 90 L 11/26/21 10:11 Intake & Output 11/25/21 11/26/21 11/26/21 18:59 06:59 18:59 Output Total 600 Balance -600 Output: Urine 600 Other: Voiding Method Toilet Toilet Toilet Urinal Urinal Urinal # Voids 2 3 - Labs CBC & Chem 7: 11/25/21 08:48 11/25/21 08:48 Labs: Abnormal Lab Results - Last 24 Hours (Table) 11/25/21 Range/Units 08:48 Carbon Dioxide 17.4 L (20.0-27.5) mmol/L Calcium 8.1 L (8.7-10.3) mg/dL AST 56 H (14-35) U/L ALT 89 H (10-49) U/L C-Reactive Protein 4.30 H (0.00-0.80) mg/dL Albumin 3.0 L (3.8-4.9) g/dL Globulin 3.8 H (1.6-3.3) g/dL Albumin/Globulin Ratio 0.79 L (1.60-3.17) g/dL
[2021-11-26] MEDS: REMDESIVIR 100 MG in SODIUM CHLORIDE 0.9% 250 ML IVPB SCH (19:09)
[2021-11-27] MEDS: ASCORBIC ACID 500 MG TAB PO SCH (07:05)
[2021-11-27] MEDS: CHOLECALCIFEROL 25 MCG (1000 IU) TABLET PO SCH (07:05)
[2021-11-27] MEDS: ZINC SULFATE 220 MG CAP PO SCH (07:06)
[2021-11-27] MEDS: ENOXAPARIN 40 MG/0.4 ML SYRINGE SQ SCH (07:06)
[2021-11-27] MEDS: DEXAMETHASONE SOD PHOSPHATE 10 MG/ML 1 ML VIAL IVP SCH (07:06)
[2021-11-27] MEDS: ALBUTEROL HFA INHALER INHALATION SCH ×3 (09:11→15:09)
[2021-11-27 10:10] LABS: Basophils # (A) 0.1 k/uL (0-0.2); Basophils % (A) 1 %; Eosinophils # (A) 0.2 k/uL (0-0.7); Eosinophils % (A) 1 %; HCT 37.3 % (39.0-53.0); HGB 11.8 gm/dL (13.0-17.5); Hypochromasia Slight; Lymphocytes # (A) 1.7 k/uL (1.0-4.8); Lymphocytes % (A) 12 %; MCH 33.2 pg (25.0-35.0); MCHC 31.7 g/dL (31.0-37.0); MCV 104.5 fL (80.0-100.0); Macrocytosis Slight; Mean Platelet Volume 9.4; Monocytes # (A) 0.4 k/uL (0-1.0); Monocytes % (A) 3 %; Neutrophils # (A) 11.4 k/uL (1.3-7.7); Neutrophils % (A) 82 %; Platelet Count 360 k/uL (150-450); RBC 3.57 m/uL (4.30-5.90); WBC 13.8 k/uL (3.8-10.6)
[2021-11-27 10:29] LABS: ALT 64 U/L (4-49); AST 57 U/L (17-59); African American GFR (CKD) >90 (>60 ml/min/1.73 sqM); Albumin 2.8 g/dL (3.5-5.0); Albumin/Globulin Ratio 0.7; Alkaline Phosphatase 49 U/L (38-126); Anion Gap 8 mmol/L; Blood Urea Nitrogen 21 mg/dL (9-20); Carbon Dioxide 21 mmol/L (22-30); Chloride 107 mmol/L (98-107); Glucose 148 mg/dL (74-99); Non-African American GFR(CKD) >90 (>60 ml/min/1.73 sqM); Sodium 136 mmol/L (137-145); Total Bilirubin 0.8 mg/dL (0.2-1.3); Total Protein 6.8 g/dL (6.3-8.2)
--- NOTE | 2021-11-27 11:39 | P.DS ---
Providers Date of admission: 11/19/21 14:01 Expected date of discharge: 11/27/21 Attending physician: Vivi Brunson DO Consults: 11/20/21 09:41 Consult Physician Routine Consulting Provider: Jignesh Deng Consult Reason/Comments: hypotension hx of congential heart deficits Do you want consulting provider notified?: Yes 11/22/21 08:31 Consult Physician Routine Consulting Provider: Madeline Rasmussen Consult Reason/Comments: COVID-19 Do you want consulting provider notified?: Yes Primary care physician: Stated None Hospital Course: Discharge Diagnosis: COVID 19 pneumonia in an unvaccinated individual Acute hypoxic respiratory failure Anemia likely due to dilution Congenital heart defect Dehydration Acute kidney injury Hyponatremia Thrombocytopenia Hospital Course: Patient is a 46-year-old -[place] male with a history of congenital heart condition, pacemaker who presents to the hospital with worsening body aches, weakness, nausea vomiting and diarrhea and shortness of breath. Patient found to be positive for COVID-19. During hospitalization patient was also hypotensive however he did respond to fluids. Patient also had a CTA chest that was negative for pulmonary embolism. Initially patient's O2 requirements were increasing so he was started on dexamethasone and pulmonology also started pa tient on remdesivir. Patient completed his course of remdesivir and prior to discharge his O2 requirements was stable on 4 L for over 48 hours. Patient had an O2 eval done and he qualified for oxygen. Patient's d-dimer was greater than 3 so I will discharge the patient on Eliquis at a prophylactic dose to prevent DVT/PE. Patient instructed to follow-up with pulmonology and also his primary car worker at [facility]. Patient is looking forward to going home. General examination - Alert and Oriented 3 in NAD Heart - + S1S2 no murmurs Lungs - diminished but does bilaterally Abdomen soft NT ND +ve BS Extremities - No edema FASHION DESIGNER - Moving all 4 extremities spontaneously Psych - Calm and cooperative A total of [32] minutes of time were spent preparing this complex discharge summary . Patient Condition at Discharge: Good Plan - Discharge Summary New Discharge Prescriptions: New Dexamethasone [Decadron] 6 mg PO DAILY #5 tablet guaiFENesin-DM 600/30MG [Mucinex Dm] 2 each PO Q12HR PRN #20 tab PRN Reason: Cough Apixaban [Eliquis] 2.5 mg PO BID #60 tab Continue Baclofen 10 mg PO DIRECTED Discontinued predniSONE 50 mg PO DIRECTED HYDROcodone/APAP 10-325MG [Bonita 10-325] 1 tab PO Q8H PRN PRN Reason: Pain Gabapentin 800 mg PO TID PRN PRN Reason: NERVE PAIN Discharge Medication List Baclofen 10 mg PO DIRECTED 11/19/21 [History] guaiFENesin-DM 600/30MG [Mucinex Dm] 2 each PO Q12HR PRN #20 tab 11/19/21 [Rx] Apixaban [Eliquis] 2.5 mg PO BID #60 tab 11/27/21 [Rx] Dexamethasone [Decadron] 6 mg PO DAILY #5 tablet 11/27/21 [Rx] Follow up Appointment(s)/Referral(s): None,Stated [Primary Care Provider] - 1-2 days Gary Hoyt [STAFF PHYSICIAN] - 1 Week Sushant Conte MD [STAFF PHYSICIAN] - 1 Week Patient Instructions/Handouts: Coronavirus Disease 2019 (COVID-19) Activity/Diet/Wound Care/Special Instructions: Tips to help you feel better: -Maintain adequate fluid intake - especially water. -Rest, you are healing your body will require extra sleep. -Eat even if you do not feel like it - broth, jello, toast are fine if you cannot eat full meals. -Take tylenol and motrin alternating (if you have no allergies or have not been instructed to avoid these medications) to help with body aches and fevers. -Obtain over the counter vitamin C, zinc, and vitamin D3. -Take medications as prescribed. Follow-up with your primary care physician for recheck in 1-2 days. Return for any new, worsening, or concerning symptoms. Discharge Disposition: HOME SELF-CARE
[2021-11-27 15:00] VITALS: BP 95/61; PULSE 71; RESP 17; TEMP 98.1
== END 2021-11-27 15:46 | disposition home or self-care (01) | DRG 177 ==
LOC: EC 08:37 → 4SSUR 14:01
PROVIDERS: ADMIT Internal Medicine; ATTEND Internal Medicine
PROC: XW033E5 Introduction of Remdesivir Anti-infective into Peripheral Vein, Percutaneous Approach, New Technology Group 5 (ICD-10-PCS; principal; 2021-11-19)
DX: U07.1 COVID-19 (principal); J96.01 Acute respiratory failure with hypoxia; J12.82 Pneumonia due to coronavirus disease 2019; E87.1 Hypo-osmolality and hyponatremia; N17.9 Acute kidney failure, unspecified; D64.89 Other specified anemias; D69.6 Thrombocytopenia, unspecified; E86.0 Dehydration; Z79.899 Other long term (current) drug therapy; Z95.0 Presence of cardiac pacemaker; Z98.890 Other specified postprocedural states; Z79.52 Long term (current) use of systemic steroids
CPT/HCPCS: 36415; 71045; 71046; 71275; 80048; 80053; 83605; 83615; 83735; 83880; 84100; 84145; 84484; 85025; 85027; 85379; 86140; 87070; 87205; 93005; 93308; 94640; 96361; 96365; 96375; 99285

== ENCOUNTER 2022-07-29 12:30 | Emergency (ER) | payer MEDICARE, OTHER ==
[2022-07-29 13:54] VITALS: BP 112/76; PULSE 66; RESP 16; TEMP 98.1
--- NOTE | 2022-07-29 14:46 | ED ---
ENT HPI - General Chief complaint: ENT Stated complaint: rt ear pain Time Seen by Provider: 07/29/22 14:16 Source: patient Mode of arrival: ambulatory Limitations: no limitations - History of Present Illness Initial comments: Patient is a 47-year-old male presenting with chief complaint of right ear pain and difficulty hearing. Patient states started this morning. His ear felt very full, he was using a Q-tip and some hydrogen peroxide to try to alleviate the symptoms, however he was unsuccessful. Denies any cough, congestion, eye discharge, URI like symptoms. No fever or chills. No pain or swelling behind the ear. No headache or vision changes. - Related Data Home Medications Medication Instructions Recorded Confirmed Baclofen 10 mg PO DIRECTED 11/19/21 11/19/21 Previous Rx's Medication Instructions Recorded guaiFENesin-DM 600/30MG [Mucinex 2 each PO Q12HR PRN #20 tab 11/19/21 Dm] Apixaban [Eliquis] 2.5 mg PO BID #60 tab 11/27/21 dexAMETHasone [Decadron] 6 mg PO DAILY #5 tablet 11/27/21 Amoxicillin 875 mg PO Q12HR 7 Days #14 tablet 07/29/22 Allergies Allergy/AdvReac Type Severity Reaction Status Date / Time No Known Allergies Allergy Verified 07/29/22 13:54 Review of Systems ROS Statement: Those systems with pertinent positive or pertinent negative responses have been documented in the HPI. ROS Other: All systems not noted in ROS Statement are negative. Past Medical History Additional Past Medical History / Comment(s): pacemaker, born with heart problems History of Any Multi-Drug Resistant Organisms: None Reported Past Surgical History: Pacemaker Additional Past Surgical History / Comment(s): cardiac Past Psychological History: No Psychological Hx Reported Smoking Status: Never smoker Past Alcohol Use History: None Reported Past Drug Use History: None Reported General Exam Limitations: no limitations General appearance: alert, in no apparent distress Head exam: Present: atraumatic, normocephalic, normal inspection Eye exam: Present: normal appearance, EOMI. Absent: scleral icterus, periorbital swelling Expanded TM/Canal exam: Perforation: Right TM (Reassessment after irrigation to remove cerumen impaction), Cerumen Impaction: Right TM (Initial assessment) Neck exam: Present: normal inspection Neurological exam: Present: alert, oriented X3, CN II-XII intact Psychiatric exam: Present: normal affect, normal mood Skin exam: Present: warm, dry, intact, normal color. Absent: rash Course Vital Signs 07/29/22 13:52 Temperature 98.1 F Pulse Rate 66 Respiratory 16 Rate Blood Pressure 112/76 O2 Sat by Pulse 96 Oximetry Medical Decision Making - Medical Decision Making Patient is a 47-year-old male presenting with chief complaint of right ear pain and difficulty hearing. Patient states symptoms started this morning, he was using a Q-tip and hydrogen peroxide in his ear which made symptoms worse. On examination there is cerumen impaction. Attempted to flush the ear with saline. On reassessment some cerumen has been disimpacted, there is no visible tympanic membrane perforation. Patient was placed on amoxicillin 875 twice a day for 7 days and instructed to follow-up with ENT. Follow-up with PCP. Report back to ER with any new or worsening symptoms. Discussed return parameters and answered all questions. Patient conveyed verbal understanding and agreed to the plan. I discussed this case in detail with my attending Dr. Donato Disposition Clinical Impression: Otitis media, Tympanic membrane perforation Disposition: HOME SELF-CARE Condition: Good Instructions (If sedation given, give patient instructions): Ruptured Eardrum (ED), Ear Infection (ED) Additional Instructions: Follow-up with PCP and ENT. Report back to ER if any new or worsening symptoms. Take medication as prescribed. Prescriptions: Amoxicillin 875 mg PO Q12HR 7 Days #14 tablet Is patient prescribed a controlled substance at d/c from ED?: No Referrals: Gary Hoyt [Primary Care Provider] - 1-2 days Sean Shin MD [STAFF PHYSICIAN] - 1-2 days Time of Disposition: 14:46
== END 2022-07-29 15:00 | disposition home or self-care (01) ==
LOC: EC 12:30
DX: H66.91 Otitis media, unspecified, right ear (principal); H72.91 Unspecified perforation of tympanic membrane, right ear
CPT/HCPCS: 99282

== ENCOUNTER 2023-03-05 01:41 | Emergency (ER) | payer MEDICARE, OTHER ==
[2023-03-05 01:46] VITALS: BP 125/77; PULSE 104; RESP 18; TEMP 98.5
--- NOTE | 2023-03-05 03:06 | ED ---
General Adult HPI - General Chief complaint: Upper Respiratory Infection Stated complaint: Covid Time Seen by Provider: 03/05/23 02:09 Source: patient, RN notes reviewed, old records reviewed Mode of arrival: ambulatory - History of Present Illness Initial comments: 39-year-old male presents with concerned that he may have coronavirus. Patient was in a car over the course of 3 days with his girlfriend who has tested positive for coronavirus. Patient is having a mild cough. No fever. No dyspnea. No chest pain. - Related Data Home Medications Medication Instructions Recorded Confirmed Baclofen 10 mg PO DIRECTED 11/19/21 11/19/21 Previous Rx's Medication Instructions Recorded guaiFENesin-DM 600/30MG [Mucinex 2 each PO Q12HR PRN #20 tab 11/19/21 Dm] Apixaban [Eliquis] 2.5 mg PO BID #60 tab 11/27/21 dexAMETHasone [Decadron] 6 mg PO DAILY #5 tablet 11/27/21 Amoxicillin 875 mg PO Q12HR 7 Days #14 tablet 07/29/22 Allergies Allergy/AdvReac Type Severity Reaction Status Date / Time No Known Allergies Allergy Verified 03/05/23 01:46 Review of Systems ROS Statement: Those systems with pertinent positive or pertinent negative responses have been documented in the HPI. ROS Other: All systems not noted in ROS Statement are negative. Past Medical History Additional Past Medical History / Comment(s): pacemaker, born with heart problems History of Any Multi-Drug Resistant Organisms: None Reported Past Surgical History: Pacemaker Additional Past Surgical History / Comment(s): cardiac Past Psychological History: No Psychological Hx Reported Smoking Status: Never smoker Past Alcohol Use History: None Reported Past Drug Use History: None Reported General Exam General appearance: alert, in no apparent distress Head exam: Present: atraumatic, normocephalic Eye exam: Present: normal appearance, PERRL Respiratory exam: Present: normal lung sounds bilaterally. Absent: respiratory distress, wheezes Cardiovascular Exam: Present: regular rate, normal rhythm GI/Abdominal exam: Absent: distended Neurological exam: Present: alert, oriented X3 Psychiatric exam: Present: normal affect, normal mood Course Vital Signs 03/05/23 01:42 Temperature 98.5 F Pulse Rate 104 H Respiratory 18 Rate Blood Pressure 125/77 O2 Sat by Pulse 96 Oximetry Medical Decision Making - Medical Decision Making Was pt. sent in by a medical professional or institution (BRIAN Williamson, ANALYTICS DEVELOPER, urgent care, hospital, or [facility]...) When possible be specific @ -[No] Did you speak to anyone other than the patient for history (EMS, parent, family, police, friend...)? What history was obtained from this source @ -[No] Did you review nursing and triage notes (agree or disagree)? Why? @ -[I reviewed and agree with nursing and triage notes] Were old charts reviewed (outside hosp., previous admission, EMS record, old EKG, old radiological studies, urgent care reports/EKG's, [facility] records)? Report findings @ -[Previous admission for coronavirus 19 Differential Diagnosis (chest pain, altered mental status, abdominal pain women, abdominal pain men, vaginal bleeding, weakness, fever, dyspnea, syncope, headache, dizziness, GI bleed, back pain, seizure, CVA, palpatations, mental health, musculoskeletal)? @ -[URI, coronavirus EKG interpreted by me (3pts min.). @ -[As above] X-rays interpreted by me (1pt min.). @ -[None done] CT interpreted by me (1pt min.). @ -[None done] U/S interpreted by me (1pt. min.). @ -[None done] What testing was considered but not performed or refused? (CT, X-rays, U/S, labs)? Why? @ -[None] What meds were considered but not given or refused? Why? @ -[None] Did you discuss the management of the patient with other professionals (professionals i.e. BRIAN Williamson, ANALYTICS DEVELOPER, lab, RT, psych nurse, nephrology social worker, roads supervisor, teacher, chief information officer, onsite case manager)? Give summary @ -[No] Was smoking cessation discussed for >3mins.? @ -[No] Was critical care preformed (if so, how long)? @ -[No] Were there social determinants of health that impacted care today? How? (Homelessness, low income, unemployed, alcoholism, drug addiction, transportation, low edu. Level, literacy, decrease access to med. care, shelter, rehab)? @ -[No] Was there de-escalation of care discussed even if they declined (Discuss DNR or withdrawal of care, Hospice)? DNR status @ -[No] What co-morbidities impacted this encounter? (DM, HTN, Smoking, COPD, CAD, Cancer, CVA, ARF, Chemo, Hep., AIDS, mental health diagnosis, sleep apnea, mor bid obesity)? @ -[Pacemaker defibrillator] Was patient admitted / discharged? Hospital course, mention meds given and route, prescriptions, significant lab abnormalities, going to OR and other pertinent info. @ -[47-year-old male who is concerned that he may have contracted coronavirus. He currently has minimal symptoms. His coronavirus testing is negative in the emergency department. He is instructed to take vitamin D, vitamin C and zinc. He will monitor his symptoms and if he develops symptoms he will quarantine and follow with his primary care physician.] Undiagnosed new problem with uncertain prognosis? @ -[No] Drug Therapy requiring intensive monitoring for toxicity (Heparin, Nitro, Insulin, Cardizem)? @ -[No] Were any procedures done? @ -[No] Diagnosis/symptom? @ -[: Coronavirus Negative] - Lab Data Lab Results 03/05/23 Range/Units 02:40 Coronavirus (PCR) Not Detected (Not Detectd) Disposition Clinical Impression: Exposure to COVID-19 virus Disposition: HOME SELF-CARE Condition: Fair Instructions (If sedation given, give patient instructions): Social Distancing Guidelines for COVID-19 (ED) Additional Instructions: Please take vitamin C, vitamin D, and zinc. Is patient prescribed a controlled substance at d/c from ED?: No Referrals: Nonstaff,Physician [Primary Care Provider] - 1-2 days Time of Disposition: 03:22
--- NOTE | 2023-03-05 03:29 | ED ---
Medical Decision Making - Lab Data Lab Results 03/05/23 Range/Units 02:40 Coronavirus (PCR) Not Detected (Not Detectd) Disposition Clinical Impression: Exposure to COVID-19 virus Disposition: HOME SELF-CARE Condition: Fair Instructions (If sedation given, give patient instructions): Social Distancing Guidelines for COVID-19 (ED) Additional Instructions: Please take vitamin C, vitamin D, and zinc. Is patient prescribed a controlled substance at d/c from ED?: No Referrals: Nonstaff,Physician [REFERRING] - 1-2 days Demetris Pace DO [Doctor of Osteopathic Medicine] - 1-2 days
== END 2023-03-05 03:34 | disposition home or self-care (01) ==
LOC: EC 01:41
DX: R05.9 Cough, unspecified (principal); Z20.822 Contact with and (suspected) exposure to COVID-19
CPT/HCPCS: 87635; 99284

== ENCOUNTER 2024-01-01 13:44 | Emergency (ER) | payer MEDICARE, OTHER ==
--- NOTE | 2024-01-01 13:59 | ED ---
Chest Pain HPI - General Chief Complaint: Chest Pain Stated Complaint: Chest Pain Time Seen by Provider: 01/01/24 13:59 Source: patient, RN notes reviewed, old records reviewed Mode of arrival: ambulatory Limitations: no limitations - History of Present Illness Initial Comments: This is a 48-year-old male to the ER for evaluation today. Patient [facility] for evaluation of chest pain patient has consistent bouts of chest pain that are sometimes associated with shortness of breath and sweating. Patient does have a pacemaker placed which he believes is related to a hole in his heart unsure of why, no surgery no history of heart catheterization. Patient states he has had a stress test in the past which he believes was normal. Patient does take me toprolol but no other medications no high blood pressure cholesterol or diabetes. Patient's chest pain is persistent here in the ER but improving MD Complaint: chest pain -: hour(s) Onset: during rest, during exertion Pain Location: substernal Pain Radiation: RUE Severity: mild Severity scale (1-10): 3 Quality: heaviness Consistency: constant, intermittent Improves With: nothing Worsens With: nothing Anginal Symptoms: sense of impending doom Other Symptoms: palpitations Treatments Prior to Arrival: none - Related Data Home Medications Medication Instructions Recorded Confirmed Metoprolol Succinate (ER) [Toprol 100 mg PO DAILY 01/01/24 01/01/24 Xl] Allergies Allergy/AdvReac Type Severity Reaction Status Date / Time No Known Allergies Allergy Verified 01/01/24 15:12 Review of Systems ROS Statement: Those systems with pertinent positive or pertinent negative responses have been documented in the HPI. ROS Other: All systems not noted in ROS Statement are negative. EKG Findings - EKG Comments: EKG Findings:: EKG is paced 68 RI 189 QRS 113 QTc 393 - EKG Results: EKG: interpreted by [facility] Past Medical History Additional Past Medical History / Comment(s): pacemaker, born with heart problems History of Any Multi-Drug Resistant Organisms: None Reported Past Surgical History: Pacemaker Additional Past Surgical History / Comment(s): cardiac, AICD Past Psychological History: No Psychological Hx Reported Smoking Status: Never smoker Past Alcohol Use History: None Reported Past Drug Use History: None Reported General Exam Limitations: no limitations General appearance: alert, in no apparent distress Head exam: Present: atraumatic, normocephalic, normal inspection Eye exam: Present: normal appearance, PERRL, EOMI. Absent: scleral icterus, conjunctival injection, periorbital swelling ENT exam: Present: normal exam, mucous membranes moist Neck exam: Present: normal inspection. Absent: tenderness, meningismus, lymphadenopathy Respiratory exam: Present: normal lung sounds bilaterally. Absent: respiratory distress, wheezes, rales, rhonchi, stridor Cardiovascular Exam: Present: regular rate, normal rhythm, normal heart sounds. Absent: systolic murmur, diastolic murmur, rubs, gallop, clicks GI/Abdominal exam: Present: soft, normal bowel sounds. Absent: distended, tenderness, guarding, rebound, rigid Extremities exam: Present: normal inspection, full ROM, normal capillary refill. Absent: tenderness, pedal edema, joint swelling, calf tenderness Back exam: Present: normal inspection Neurological exam: Present: alert, oriented X3, CN II-XII intact Psychiatric exam: Present: normal affect, normal mood Skin exam: Present: warm, dry, intact, normal color. Absent: rash Course Vital Signs 01/01/24 01/01/24 01/01/24 13:49 14:36 15:00 Temperature 97.9 F Pulse Rate 78 62 Respiratory 16 18 17 Rate Blood Pressure 122/82 137/98 118/88 O2 Sat by Pulse 96 97 96 Oximetry 01/01/24 17:47 Temperature 98.0 F Pulse Rate 80 Respiratory 18 Rate Blood Pressure 125/85 O2 Sat by Pulse 97 Oximetry - Reevaluation(s) Reevaluation #1: 01/01/24 16:10 Medical records reviewed Reevaluation #2: 01/01/24 16:10 Patient's symptoms are improving Reevaluation #3: 01/01/24 16:10 Patient informed of results and questions answered Studies Chest x-ray is negative for acute disease Reevaluation #4: 01/01/24 16:10 Was pt. sent in by a medical professional or institution (, PA, VAN LOADER, urgent care, hospital, or senior care...) When possible be specific @ -no Did you speak to anyone other than the patient for history (EMS, parent, family, police, friend...)? What history was obtained from this source @ -no Did you review nursing and triage notes (agree or disagree)? Why? @ -agree Are old charts reviewed (outside hosp., previous admission, EMS record, old EKG, old radiological studies, urgent care reports/EKG's, senior care records)? Report findings @ -yes Differential Diagnosis (chest pain, altered mental status, abdominal pain women, abdominal pain men, vaginal bleeding, weakness, fever, dyspnea, syncope, headache, dizziness, GI bleed, back pain, seizure, CVA, palpatations, mental health, musculoskeletal)? @ -prior EKG interpreted by me (3pts min.). @ -yes X-rays interpreted by me (1pt min.). @ -yes negative for acute disease CT interpreted by me (1pt min.). @ -no U/S interpreted by me (1pt. min.). @ -no What testing was considered but not performed or refused? (CT, X-rays, U/S, labs)? Why? @ -none What meds were considered but not given or refused? Why? @ -none Did you discuss the management of the patient with other professionals (professionals i.e. , PA, VAN LOADER, lab, RT, psych nurse, psychologist social, marker shipments, teacher, employment security officer, telephonic case manager)? Give summary @ -no Was smoking cessation discussed for >3mins.? @ -no Was critical care preformed (if so, how long)? @ -no Were there social determinants of health that impacted care today? How? (Homelessness, low income, unemployed, alcoholism, drug addiction, transportation, low edu. Level, literacy, decrease access to med. care, care home, rehab)? @ -none Was there de-escalation of care discussed even if they declined (Discuss DNR or withdrawal of care, Hospice)? DNR status @ -no What co-morbidities impacted this encounter? (DM, HTN, Smoking, COPD, CAD, Cancer, CVA, ARF, Chemo, Hep., AIDS, mental health diagnosis, sleep apnea, morbid obesity)? @ -none Was patient admitted / discharged? Hospital course, mention meds given and route, prescriptions, significant lab abnormalities, going to OR and other pertinent info. @ - 48 male to ER for evaluation patient has persistent chest pain here in the ER and feels well, feeling improved does not want to stay in the hospital for cardiology evaluation, we will interrogate patient's pacemaker patient will be discharged home Discharge Undiagnosed new problem with uncertain prognosis? @ -no Drug Therapy requiring intensive monitoring for toxicity (Heparin, Nitro, Insulin, Cardizem)? @ -no Were any procedures done? @ -no Diagnosis/symptom? @ -Chest pain Acute, or Chronic, or Acute on Chronic? @ -Acute Uncomplicated (without systemic symptoms) or Complicated (systemic symptoms)? @ -Complicated Side effects of treatment? @ -no Exacerbation, Progression, or Severe Exacerbation? @ -exacerbation Poses a threat to life or bodily function? How? (Chest pain, [place], [place], pneumonia, PE, COPD, DKA, ARF, appy, cholecystitis, CVA, Diverticulitis, Homicidal, Suicidal, threat to staff... and all critical care pts) @ -yes with chest pain Reevaluation #5: 01/01/24 16:10 Differential Chest Pain: Stable Angina, Unstable Angina, STEMI, NSTEMI Aortic Dissection, Pneumothorax, Musculoskeletal, Esophageal Spasm GERD, Cholecystitis, Pancreatitis, Zoster, this is not meant to be an all-inclusive list. Chest Pain MDM - MDM 48 male to ER for evaluation patient has persistent chest pain here in the ER and feels well, feeling improved does not want to stay in the hospital for cardiology evaluation, we will interrogate patient's pacemaker patient will be discharged home Disposition Clinical Impression: Chest pain Disposition: HOME SELF-CARE Condition: Good Instructions (If sedation given, give patient instructions): Chest Pain (ED) Is patient prescribed a controlled substance at d/c from ED?: No Referrals: Ish Brown MD [Primary Care Provider] - 1-2 days [facility] [Provider Group] - 1-2 days Time of Disposition: 16:00
--- NOTE | 2024-01-01 14:29 | XR ---
EXAMINATION TYPE: XR chest 2V DATE OF EXAM: 01/01/2024 2:18 PM CLINICAL INDICATION:Male, 48 years old with history of Chest Pain; H COMPARISON: Chest radiographs from 11/24/2021 TECHNIQUE: XR chest 2V Frontal and lateral views of the chest. FINDINGS: Lungs/Pleura: There is no evidence of pleural effusion, focal consolidation, or pneumothorax. Pulmonary vascularity: Unremarkable. Heart/mediastinum: Cardiomediastinal silhouette is unremarkable. Two lead cardiac conduction device o verlying the left hemithorax with lead tips projecting over the right ventricle and right atrium. Musculoskeletal: No acute osseous pathology. IMPRESSION: No acute cardiopulmonary disease/process.
[2024-01-01 14:39] LABS: Basophils % (A) 1 %; Eosinophils # (A) 0.1 k/uL (0-0.7); Eosinophils % (A) 2 %; HCT 45.4 % (39.0-53.0); HGB 15.4 gm/dL (13.0-17.5); Lymphocytes # (A) 2.5 k/uL (1.0-4.8); Lymphocytes % (A) 46 %; MCH 32.9 pg (25.0-35.0); MCV 96.8 fL (80.0-100.0); Mean Platelet Volume 7.8; Monocytes # (A) 0.4 k/uL (0-1.0); Monocytes % (A) 8 %; Neutrophils # (A) 2.3 k/uL (1.3-7.7); Neutrophils % (A) 43 %; Platelet Count 234 k/uL (150-450); RBC 4.69 m/uL (4.30-5.90); RDW 12.1 % (11.5-15.5); WBC 5.4 k/uL (3.8-10.6)
[2024-01-01 14:51] LABS: ALT 18 U/L (4-49); AST 25 U/L (17-59); African American GFR (CKD) >90 (>60 ml/min/1.73 sqM); Albumin 4.4 g/dL (3.5-5.0); Alkaline Phosphatase 68 U/L (38-126); Anion Gap 7 mmol/L; Blood Urea Nitrogen 14 mg/dL (9-20); Calcium 9.5 mg/dL (8.4-10.2); Carbon Dioxide 25 mmol/L (22-30); Chloride 107 mmol/L (98-107); Glucose 104 mg/dL (74-99); Lipase 137 U/L (23-300); Non-African American GFR(CKD) >90 (>60 ml/min/1.73 sqM); Potassium 4.1 mmol/L (3.5-5.1); Sodium 139 mmol/L (137-145); Total Bilirubin 0.6 mg/dL (0.2-1.3); Total Protein 8.1 g/dL (6.3-8.2)
[2024-01-01 14:57] LABS: Partial Thromboplastin Time 26.2 sec (22.0-30.0); Prothrombin Time 11.1 sec (10.0-12.5)
[2024-01-01 14:58] LABS: NT-Pro-B-Type Natriuretic Pept 21 pg/mL
[2024-01-01 18:01] VITALS: BP 125/85; PULSE 80; RESP 18; TEMP 98
== END 2024-01-01 17:47 | disposition home or self-care (01) ==
LOC: EC 13:44
DX: I45.9 Conduction disorder, unspecified (principal)
CPT/HCPCS: 36415; 71046; 80053; 83690; 83735; 83880; 84484; 85025; 85610; 85730; 93005; 99285

== ENCOUNTER 2024-12-01 15:50 | Emergency (ER) | payer MEDICARE, OTHER ==
--- NOTE | 2024-12-01 16:42 | ED ---
Upper Extremity HPI - General Chief Complaint: Extremity Injury, Upper Stated Complaint: L shoulder pain, congestion Time Seen by Provider: 12/01/24 16:39 Source: patient, RN notes reviewed Mode of arrival: ambulatory Limitations: no limitations - History of Present Illness Initial Comments: 49-year-old male presenting for left shoulder pain x 2 months. States he has had increasing pain in the neck and left shoulder, radiating down the left arm that is worse with movement and raising the left arm and turning his neck to the left. Denies chest pain or shortness of breath although states he currently has a cold and has a productive cough. He does have a pacemaker and a defibrillator. Has not been on blood thinner in one year. Denies any known t rauma or injury however does report he recently started to workout with a operations trainer and believes he may have pulled a muscle. - Related Data Home Medications Medication Instructions Recorded Confirmed Metoprolol Succinate (ER) [Toprol 100 mg PO DAILY 01/01/24 01/01/24 Xl] Previous Rx's Medication Instructions Recorded Cyclobenzaprine [Flexeril] 10 mg PO TID PRN #15 tab 12/01/24 Ibuprofen [Motrin] 600 mg PO Q8HR PRN #30 tab 12/01/24 Allergies Allergy/AdvReac Type Severity Reaction Status Date / Time No Known Allergies Allergy Verified 12/01/24 16:04 Review of Systems ROS Statement: Those systems with pertinent positive or pertinent negative responses have been documented in the HPI. ROS Other: All systems not noted in ROS Statement are negative. Past Medical History Additional Past Medical History / Comment(s): pacemaker, born with heart problems History of Any Multi-Drug Resistant Organisms: None Reported Past Surgical History: Pacemaker Additional Past Surgical History / Comment(s): cardiac, AICD Past Psychological History: No Psychological Hx Reported Smoking Status: Never smoker Past Alcohol Use History: None Reported Past Drug Use History: None Reported General Exam Limitations: no limitations General appearance: alert, in no apparent distress Head exam: Present: atraumatic, normocephalic, normal inspection Eye exam: Present: normal appearance, PERRL, EOMI. Absent: scleral icterus, conjunctival injection, periorbital swelling ENT exam: Present: normal exam, mucous membranes moist Neck exam: Present: normal inspection, full ROM (Pain with rotation of C-spine). Absent: tenderness, meningismus, lymphadenopathy Respiratory exam: Present: normal lung sounds bilaterally. Absent: respiratory distress, wheezes, rales, rhonchi, stridor Cardiovascular Exam: Present: regular rate, normal rhythm, normal heart sounds. Absent: systolic murmur, diastolic murmur, rubs, gallop, clicks Left Shoulder Exam: Present: normal inspection, full ROM (Pain with flexion and extension of left shoulder), tenderness (Tenderness on posterior aspect of left shoulder). Absent: swelling, deformity Upper Arm exam: Present: normal inspection, full ROM. Absent: tenderness, swelling Elbow exam: Present: normal inspection, full ROM. Absent: tenderness, swelling Forearm Wrist exam: Present: normal inspection, full ROM. Absent: tenderness, swelling Hand Wrist exam: Present: normal inspection, full ROM. Absent: tenderness, swelling Vascular: Present: normal capillary refill, radial pulse. Absent: vascular compromise Neurological exam: Present: alert, oriented X3 Psychiatric exam: Present: normal affect, normal mood Skin exam: Present: warm, dry, intact, normal color. Absent: rash Course Vital Signs 12/01/24 16:00 Temperature 98.1 F Pulse Rate 69 Respiratory 20 Rate Blood Pressure 123/80 O2 Sat by Pulse 94 L Oximetry Medical Decision Making - Medical Decision Making Was pt. sent in by a medical professional or institution (, PA, MATRIX BATH ATTENDANT, urgent care, hospital, or fci...) When possible be specific @ -No Did you speak to anyone other than the patient for history (EMS, parent, family, police, friend...)? What history was obtained from this source @ -No Did you review nursing and triage notes (agree or disagree)? Why? @ -I reviewed and agree with nursing and triage notes Were old charts reviewed (outside hosp., previous admission, EMS record, old EKG, old radiological studies, urgent care reports/EKG's, fci records)? Report findings @ -No old charts were reviewed Differential Diagnosis (chest pain, altered mental status, abdominal pain women, abdominal pain men, vaginal bleeding, weakness, fever, dyspnea, syncope, headache, dizziness, GI bleed, back pain, seizure, CVA, palpatations, mental health, musculoskeletal)? @ -Differential Musculoskeletal Muscular strain, contusion, ligament sprain, fracture, arthritis, septic arthritis, bursitis, cellulitis, muscle spasm, nerve compression, DVT, arterial occlusion, herpes zoster, electrolyte abnormality, tumor.... This is not meant to be in all inclusive list EKG interpreted by me (3pts min.). @ -As above X-rays interpreted by me (1pt min.). @ -Chest x-ray and left shoulder x-ray reveals no acute process CT interpreted by me (1pt min.). @ -None done U/S interpreted by me (1pt. min.). @ -None done What testing was considered but not performed or refused? (CT, X-rays, U/S, labs)? Why? @ -None What meds were considered but not given or refused? Why? @ -None Did you discuss the management of the patient with other professionals (professionals i.e. , PA, MATRIX BATH ATTENDANT, lab, RT, psych nurse, social work administrator, senior dot net developer, teacher, medical information officer, shoe caser)? Give summary @ -No Was smoking cessation discussed for >3mins.? @ -No Was critical care preformed (if so, how long)? @ -No Were there social determinants of health that impacted care today? How? (Homelessness, low income, unemployed, alcoholism, drug addiction, transportation, low edu. Level, literacy, decrease access to med. care, group home, rehab)? @ -No Was there de-escalation of care discussed even if they declined (Discuss DNR or withdrawal of care, Hospice)? DNR status @ -No What co-morbidities impacted this encounter? (DM, HTN, Smoking, COPD, CAD, Cancer, CVA, ARF, Chemo, Hep., AIDS, mental health diagnosis, sleep apnea, morbid obesity)? @ -None Was patient admitted / discharged? Hospital course, mention meds given and route, prescriptions, significant lab abnormalities, going to OR and other pertinent info. @ -Discharge. This is a 49-year-old male presenting for left shoulder pain x 2 months. Pain is worse with movement. Patient was provided with analgesics for supportive care. EKG reveals paced rhythm with no acute ST changes. Lab work including CBC, CMP, troponin unremarkable. Chest x-ray left shoulder x-ray reveals no acute process. Results discussed with patient. Patient reports improvement of symptoms upon reevaluation. Discussed diagnosis of left shoulder strain. Advised follow-up with orthopedics. Appropriate return precautions and follow-up care discussed. Patient is agreeable to this plan. Patient was discharged home with prescription for Flexeril and ibuprofen. Case was discussed with my ED attending Dr. Borden. Undiagnosed new problem with uncertain prognosis? @ -No Drug Therapy requiring intensive monitoring for toxicity (Heparin, Nitro, Insulin, Cardizem)? @ -No Were any procedures done? @ -No Diagnosis/symptom? @ -Left shoulder strain Acute, or Chronic, or Acute on Chronic? @ -Acute Uncomplicated (without systemic symptoms) or Complicated (systemic symptoms)? @ -Uncomplicated Side effects of treatment? @ -No Exacerbation, Progression, or Severe Exacerbation? @ -No Poses a threat to life or bodily function? How? (Chest pain, [place], [place], pneumonia, PE, COPD, DKA, ARF, appy, cholecystitis, CVA, Diverticulitis, Homicidal, Suicidal, threat to staff... and all critical care pts) @ -No - Lab Data Result diagrams: 12/01/24 16:41 12/01/24 16:41 Lab Results 12/01/24 12/01/24 12/01/24 Range/Units 16:41 16:41 16:41 WBC 4.8 (3.8-10.6) k/uL RBC 4.33 (4.30-5.90) m/uL Hgb 14.1 (13.0-17.5) gm/dL Hct 43.0 (39.0-53.0) % MCV 99.4 (80.0-100.0) fL MCH 32.6 (25.0-35.0) pg MCHC 32.8 (31.0-37.0) g/dL RDW 12.4 (11.5-15.5) % Plt Count 255 (150-450) k/uL MPV 7.5 Neutrophils % 30 % Lymphocytes % 57 % Monocytes % 8 % Eosinophils % 3 % Basophils % 1 % Neutrophils # 1.4 (1.3-7.7) k/uL Lymphocytes # 2.7 (1.0-4.8) k/uL Monocytes # 0.4 (0-1.0) k/uL Eosinophils # 0.1 (0-0.7) k/uL Basophils # 0.0 (0-0.2) k/uL Sodium 143 (137-145) mmol/L Potassium 4.9 (3.5-5.1) mmol/L Chloride 107 (98-107) mmol/L Carbon Dioxide 29 (22-30) mmol/L Anion Gap 7 mmol/L BUN 16 (9-20) mg/dL Creatinine 1.03 (0.66-1.25) mg/dL Est GFR (CKD-EPI)AfAm >90 (>60 ml/min/1.73 sqM) Est GFR (CKD-EPI)NonAf 85 (>60 ml/min/1.73 sqM) Glucose 86 (74-99) mg/dL Calcium 9.4 (8.4-10.2) mg/dL Total Bilirubin 0.5 (0.2-1.3) mg/dL AST 25 (17-59) U/L ALT 15 (4-49) U/L Alkaline Phosphatase 54 (38-126) U/L Troponin I <0.012 (0.000-0.034) ng/mL Total Protein 7.8 (6.3-8.2) g/dL Albumin 4.4 (3.5-5.0) g/dL - EKG Data -: EKG Interpreted by Me EKG Comments: EKG reveals paced rhythm with no acute ST changes. Ventricular rate 59 bpm, [place] interval 219, QRS duration 112, QT/QTc 386/385 Disposition Clinical Impression: Injury of left shoulder Disposition: HOME SELF-CARE Condition: Stable Instructions (If sedation given, give patient instructions): Rotator Cuff Injury (ED) Additional Instructions: Take Flexeril and ibuprofen as needed for pain. Follow-up with orthopedics as discussed. Please return to the Emergency Department if symptoms worsen or any other concerns. Prescriptions: Cyclobenzaprine [Flexeril] 10 mg PO TID PRN #15 tab PRN Reason: Muscle Spasm Ibuprofen [Motrin] 600 mg PO Q8HR PRN #30 tab PRN Reason: Pain Is patient prescribed a controlled substance at d/c from ED?: No Referrals: Ish Brown MD [Primary Care Provider] - 1-2 days Maynor Mcallister DO [Doctor of Osteopathic Medicine] - 1-2 days Forms: PH Area PCPs Time of Disposition: 17:56
[2024-12-01 16:53] LABS: Basophils % (A) 1 %; Eosinophils # (A) 0.1 k/uL (0-0.7); Eosinophils % (A) 3 %; HGB 14.1 gm/dL (13.0-17.5); Lymphocytes # (A) 2.7 k/uL (1.0-4.8); Lymphocytes % (A) 57 %; MCH 32.6 pg (25.0-35.0); MCHC 32.8 g/dL (31.0-37.0); MCV 99.4 fL (80.0-100.0); Mean Platelet Volume 7.5; Monocytes # (A) 0.4 k/uL (0-1.0); Monocytes % (A) 8 %; Neutrophils # (A) 1.4 k/uL (1.3-7.7); Neutrophils % (A) 30 %; Platelet Count 255 k/uL (150-450); RBC 4.33 m/uL (4.30-5.90); RDW 12.4 % (11.5-15.5); WBC 4.8 k/uL (3.8-10.6)
[2024-12-01] MEDS: ORPHENADRINE 30 MG/ML 2 ML VIAL IM STA (16:54)
[2024-12-01] MEDS: DEXAMETHASONE SOD PHOSPHATE 10 MG/ML 1 ML VIAL IVP STA (16:55)
[2024-12-01] MEDS: ORPHENADRINE 30 MG/ML 2 ML VIAL IVP STA (16:55)
[2024-12-01 17:13] LABS: ALT 15 U/L (4-49); AST 25 U/L (17-59); African American GFR (CKD) >90 (>60 ml/min/1.73 sqM); Albumin 4.4 g/dL (3.5-5.0); Alkaline Phosphatase 54 U/L (38-126); Anion Gap 7 mmol/L; Blood Urea Nitrogen 16 mg/dL (9-20); Calcium 9.4 mg/dL (8.4-10.2); Carbon Dioxide 29 mmol/L (22-30); Chloride 107 mmol/L (98-107); Glucose 86 mg/dL (74-99); Non-African American GFR(CKD) 85 (>60 ml/min/1.73 sqM); Potassium 4.9 mmol/L (3.5-5.1); Sodium 143 mmol/L (137-145); Total Bilirubin 0.5 mg/dL (0.2-1.3); Total Protein 7.8 g/dL (6.3-8.2)
--- NOTE | 2024-12-01 17:26 | XR ---
EXAMINATION TYPE: XR shoulder complete LT DATE OF EXAM: 12/01/2024 5:18 PM COMPARISON: None CLINICAL INDICATION: Male, 49 years old with history of left shoulder pain; [facility], pain TECHNIQUE: XR shoulder complete LT; examined in AP, internally rotated and scapular Y projections. FINDINGS: No evidence of acute osseous pathology, joint dislocation, or soft tissue swelling. The remaining po rtions of the visualized chest are unremarkable. Degeneration changes of the acromion, distal clavic le with osteophyte formation. There is osteophyte formation of the glenoid and humeral head. There is joint space narrowing of glenohumeral joint. IMPRESSION: 1. No acute osseous pathology. 2. Mild shoulder osteoarthrosis. [facility], , 12/01/2024 5:24 PM
--- NOTE | 2024-12-01 17:27 | XR ---
EXAMINATION TYPE: XR chest 2V DATE OF EXAM: 12/01/2024 5:18 PM COMPARISON: Chest radiographs from 01/01/2024 CLINICAL INDICATION: Male, 49 years old with history of left shoulder pain; [facility] TECHNIQUE: XR chest 2V Frontal and lateral views of the chest. FINDINGS: Lungs/Pleura: There is no evidence of pleural effusion, focal consolidation, or pneumothorax. Pulmonary vascularity: Unremarkable. Heart/mediastinum: Cardiomediastinal silhouette is unremarkable. Two lead cardiac conduction device o verlying the left hemithorax with lead tips projecting over the right ventricle and right atrium. Musculoskeletal: No acute osseous pathology. Other findings: None IMPRESSION: No acute cardiopulmonary disease/process. [facility], , 12/01/2024 5:25 PM
[2024-12-01 18:21] VITALS: BP 139/83; PULSE 61; RESP 16; TEMP 98
== END 2024-12-01 18:21 | disposition home or self-care (01) ==
LOC: EC 15:50
DX: S49.92XA Unspecified injury of left shoulder and upper arm, initial encounter (principal); M50.90 Cervical disc disorder, unspecified, unspecified cervical region; X58.XXXA Exposure to other specified factors, initial encounter
CPT/HCPCS: 36415; 93005; 80053; 84484; 85025; 73030; 71046; 99284; 96374; 96375; J1100; J2360

== ENCOUNTER 2024-12-29 20:15 | Emergency (ER) | payer MEDICARE, OTHER ==
--- NOTE | 2024-12-29 21:03 | ED ---
URI HPI - General Chief Complaint: Upper Respiratory Infection Stated Complaint: Chest Pain,SOB,Nausea Time Seen by Provider: 12/29/24 20:29 Source: patient, RN notes reviewed Mode of arrival: ambulatory Limitations: no limitations - History of Present Illness Initial Comments: Quick note: This is a 49-year-old male presenting with sick symptoms x 1 day. Patient endorses fever, productive cough, nasal congestion, nausea/vomiting and left lower back pain (8/10). Endorses recent sick contact with coworker. MD Complaint: fever, cough, nasal congestion - Related Data Home Medications Medication Instructions Recorded Confirmed Metoprolol Succinate (ER) [Toprol 100 mg PO DAILY 01/01/24 01/01/24 Xl] Previous Rx's Medication Instructions Recorded Cyclobenzaprine [Flexeril] 10 mg PO TID PRN #15 tab 12/01/24 Ibuprofen [Motrin] 600 mg PO Q8HR PRN #30 tab 12/01/24 Ibuprofen [Motrin] 800 mg PO Q8HR PRN #30 tab 12/29/24 Ondansetron [Zofran] 4 mg PO Q8HR PRN #10 tab 12/29/24 Oseltamivir [Tamiflu] 75 mg PO Q12HR #10 cap 12/29/24 predniSONE 50 mg PO DAILY #5 tab 12/29/24 Allergies Allergy/AdvReac Type Severity Reaction Status Date / Time No Known Allergies Allergy Verified 12/29/24 20:43 Review of Systems ROS Statement: Those systems with pertinent positive or pertinent negative responses have been documented in the HPI. ROS Other: All systems not noted in ROS Statement are negative. Past Medical History Additional Past Medical History / Comment(s): pacemaker, born with heart problems History of Any Multi-Drug Resistant Organisms: None Reported Past Surgical History: Pacemaker Additional Past Surgical History / Comment(s): cardiac, AICD Past Psychological History: No Psychological Hx Reported Smoking Status: Never smoker Past Alcohol Use History: None Reported Past Drug Use History: None Reported General Exam - General Exam Comments Initial Comments: Visual Physical Exam Vital signs reviewed General: Well-appearing, nontoxic, no acute distress. Patient seated in wheelchair Head: Normocephalic, atraumatic Eyes: PERRLA, EOMI ENT: Airway patent Chest: Nonlabored breathing Skin: No visual rash, normal skin tone Neuro: Alert and oriented 3 Musculoskeletal: No gross abnormalities Limitations: no limitations Course Vital Signs 12/29/24 20:41 Temperature 98.5 F Pulse Rate 85 Respiratory 18 Rate Blood Pressure 113/77 O2 Sat by Pulse 97 Oximetry Medical Decision Making - Medical Decision Making I completed the quick note portion of this chart signed JAIRO Christian - Lab Data Lab Results 12/29/24 Range/Units 20:48 Influenza Type A (PCR) Detected A (Not Detectd) Influenza Type B (PCR) Not Detected (Not Detectd) RSV (PCR) Not Detected (Not Detectd) SARS-CoV-2 (PCR) Not Detected (Not Detectd) Disposition Clinical Impression: Influenza Disposition: HOME SELF-CARE Condition: Good Instructions (If sedation given, give patient instructions): Influenza (ED) Prescriptions: Ibuprofen [Motrin] 800 mg PO Q8HR PRN #30 tab PRN Reason: Pain predniSONE 50 mg PO DAILY #5 tab Oseltamivir [Tamiflu] 75 mg PO Q12HR #10 cap Ondansetron [Zofran] 4 mg PO Q8HR PRN #10 tab PRN Reason: Nausea Is patient prescribed a controlled substance at d/c from ED?: No Referrals: None,Stated [Primary Care Provider] - 1-2 days Time of Disposition: 22:56
[2024-12-29 21:40] LABS: Influenza A Detected (Not Detectd); Influenza B Not Detected (Not Detectd); RSV Not Detected (Not Detectd)
--- NOTE | 2024-12-29 22:29 | XR ---
EXAMINATION TYPE: XR chest 2V DATE OF EXAM: 12/29/2024 9:14 PM COMPARISON: 12/01/2024 CLINICAL INDICATION: Male, 49 years old with history of Fever, cough, TECHNIQUE: XR chest 2V view(s) obtained. FINDINGS: The heart size is normal. The pulmonary vasculature is normal. The lungs are clear. Pacemaker overlies left chest IMPRESSION: 1. No acute pulmonary process. [facility], Workstation: [facility], 12/29/2024 10:27 PM
[2024-12-29] MEDS: IBUPROFEN 800 MG TAB PO STA (22:50)
[2024-12-29] MEDS: ONDANSETRON ODT 4 MG TAB PO STA (22:50)
[2024-12-29] MEDS: OSELTAMIVIR 75 MG CAP PO STA (22:51)
[2024-12-29] MEDS: ONDANSETRON 4 MG ODT STARTER PACK 2 TAB BTL PO STA (22:51)
[2024-12-29] MEDS: predniSONE 50 MG TAB PO STA (22:51)
[2024-12-29 23:10] VITALS: BP 123/89; PULSE 87; RESP 20; TEMP 98.6
== END 2024-12-29 23:09 | disposition home or self-care (01) ==
LOC: EC 20:15
DX: J10.1 Influenza due to other identified influenza virus with other respiratory manifestations (principal); B95.0 Streptococcus, group A, as the cause of diseases classified elsewhere
CPT/HCPCS: 87636; 71046; 99285; S0119; J7512